=== PATIENT | female | born 1945 | race Asian ===

== ENCOUNTER 2016-08-08 16:57 | Inpatient (IN) | payer OTHER ==
[~2016-08-08] VITALS: Ht 152.4 cm; Wt 50.3 kg
[~2016-08-08 16:57] MED LIST: DAILY VITE1 EACH ORAL; DONEPEZIL HCL10 M2 ORAL; LEVETIRACETAM500 MG ORAL; NAMENDA10 MG ORAL; OMEGA 3 1,0001 EACH PO; QUETIAPINE FUMA50 MG ORAL; RIVASTIGMINE3 MG PO
[2016-08-08 17:00] VITALS: BP 144/63
[2016-08-08 17:57] LABS: BASOPHILS % (AUTO) 0.5 % (0.0-2.0); EOSINOPHILS % (AUTO) 0.1 % (0.0-3.0); LYMPHOCYTES % (AUTO) 16.5 % (20.0-45.0); MEAN CORPUSCULAR HEMOGLOBIN 33.7 PG (27.0-31.0); MEAN CORPUSCULAR HGB CONC 33.1 G/DL (32.0-36.0); MEAN CORPUSCULAR VOLUME 102 FL (80-99); MEAN PLATELET VOLUME 7.2 FL (6.5-10.1); MONOCYTES % (AUTO) 2.4 % (1.0-10.0); NEUTROPHILS % (AUTO) 80.6 % (45.0-75.0); PLATELET COUNT 178 K/UL (150-450); RED BLOOD COUNT 3.86 M/UL (4.20-5.40); RED CELL DISTRIBUTION WIDTH 11.7 % (11.6-14.8); WHITE BLOOD COUNT 8.8 K/UL (4.8-10.8)
--- NOTE | 2016-08-08 18:11 | Emergency Room Report ---
History of Present Illness General Chief Complaint: Altered Level of Consciousness Source: Medical Record Present Illness HPI 70 YO F BIBEMS for ?AMS. Patient is reportedly from SNF. Had episode of nausea/ vomiting then "became altered." Per EMR from previous visit, patient is A&OX1 at baseline. History of Dementia, GERD. No other history from patient, EMS or SNF. Allergies: Coded Allergies: No Known Allergies (Unverified , 05/08/16) Patient History Past Medical History: other - GERD, alzheimers Past Surgical History: unable to obtain Pertinent Family History: unable to obtain Social History: Denies: alcohol use, drug use, smoking Now: No Immunizations: UTD Reviewed Nursing Documentation: PMH: Agreed, PSxH: Agreed Nursing Documentation-PMH Hx Cardiac Problems: No Hx Cancer: No Hx Dementia: Yes Hx Seizures: Yes Review of Systems All Other Systems: limited - AMS Physical Exam Vital Signs Date Time Temp Pulse Resp B/P Pulse Ox O2 Delivery O2 Flow Rate FiO2 08/08/16 16:53 94.6 82 20 137/82 97 Room Air Sp02 EP Interpretation: reviewed, normal General Appearance: normal inspection, well appearing, no apparent distress, alert Head: normocephalic, atraumatic Eyes: bilateral eye EOMI, bilateral eye PERRL Medical Decision Making Medicare Attestation I Tamika Squires MD hereby attest that the medical record entry for date of service, 07/14/16 accurately reflects signatures/notations that I made in my capacity as MD when I treated/diagnosed the above listed Medicare beneficiary. I attest that this information is true, accurate and complete to the best of my knowledge. I understand that any falsification, omission, or concealment of material fact may subject me to administrative, civil, or criminal liability. This patient warrants hospital admission for extreme of age and has a condition that cannot be treated as outpatient. Diagnostic Impression: Primary Impression: Altered level of consciousness Additional Impressions: Enteritis Dilated bowel ER Course 70 YO F with intractable nausea/vomiting. Abd non-focal. VSS. Afebrile. DDx includes gastritis, colitis, entertis SBO unlikely given diarrhea PLAN Labs, IVF, anti-emetic, CTAP given patient has alzheimers, not providing accurate HPI EKG Diagnostic Results Rate: normal Rhythm: NSR ST Segments: no acute changes ASA given to the pt in ED: No Rhythm Strip Diag. Results EP Interpretation: yes Rate: 74 Rhythm: NSR, no PVC's, no ectopy Chest X-Ray Diagnostic Results EP Interpretation: Yes Findings: no consolidation, no effusion, no pneumothorax, no acute cardiopulmonary disease Number of Views: 1 Reevaluation Time: 20:09 Last Vital Signs Date Time Temp Pulse Resp B/P Pulse Ox O2 Delivery O2 Flow Rate FiO2 08/08/16 17:00 94.6 77 29 144/63 98 Room Air Status: improved Reevaluation Impression Labs: Normal H&H. No leuks. Lipase normal CTAP: multiple loops of dilated SB, enteritis. No SBO. A: Patient with diarrhea, unlikely SBO at this time. Was given zofran/reglan/ativan for intractable vomiting Patient alert and oriented X1 at baseline, demented Trying to get out bed repeatedly Endorsed to Dr Marcus for admission at 810pm Needs serial abd exams, re-eval for dilated loops of SB Disposition: ADMITTED INPATIENT Condition: Serious Referrals: NON PHYSICIAN (PCP) TAMIKA SQUIRES M.D. Aug 08, 2016 18:11
[2016-08-08 18:13] LABS: TROPONIN I < 0.30 ng/mL (<=0.30)
[2016-08-08 18:15] LABS: ALANINE AMINOTRANSFERASE 34 U/L (3-33); ALBUMIN/GLOBULIN RATIO 1.4 (1.0-2.7); ANION GAP 17 (5-15); ASPARTATE AMINO TRANSFERASE 50 U/L (5-40); CALCIUM 8.8 mg/dL (8.6-10.2); CARBON DIOXIDE 22 mEQ/L (20-30); CHLORIDE 101 mEQ/L (98-107); CREATININE 0.9 mg/dL (0.5-0.9); HEMOLYSIS 117; POTASSIUM 4.4 mEQ/L (3.4-4.9); SODIUM 140 mEQ/L (135-145); TOTAL PROTEIN 6.9 g/dL (6.6-8.7)
[2016-08-08 18:25] LABS: CKMB 2.3 ng/mL (< 3.8)
[2016-08-08] MEDS ORDERED: Metoclopramide 10mg/2ml Inj IVP ONE (18:30)
[2016-08-08 18:43] VITALS: BP 136/61
[2016-08-08] MEDS ORDERED: LORazepam Inj 2mg/ml 1ml IV ONE (18:45)
[2016-08-08 20:14] VITALS: BP 104/55
[2016-08-08 22:25] VITALS: BP 105/55
[2016-08-09 00:05] VITALS: BP 99/64
[2016-08-09] MEDS ORDERED: Miralax 17gm pkt ORAL PRN ×2 (00:45→22:00)
[2016-08-09] MEDS ORDERED: Morphine Sulfate 2mg/ml Inj IVP PRN (00:45)
[2016-08-09] MEDS ORDERED: Mylanta II UD 30ml ORAL PRN ×2 (00:45→22:00)
[2016-08-09] MEDS ORDERED: Nitroglycerin Subl 0.4mg tab (Bottle Of 25) SL PRN ×2 (00:45→21:45)
[2016-08-09] MEDS ORDERED: QUETIAPINE FUMA25 MG ORAL (00:50)
[2016-08-09] MEDS ORDERED: KEPPRA500 M4 ORAL (00:50)
[2016-08-09] MEDS ORDERED: DEPAKOTE ER250 MG ORAL (00:50)
[2016-08-09] MEDS: D5 1/2NS 1,000 ML IV SCH ×4 (01:18→22:00)
[2016-08-09] MEDS ORDERED: Zosyn 3.375gm inj ONE (02:06)
[2016-08-09 04:02] VITALS: BP 117/59
[2016-08-09] MEDS: LORazepam Inj 2mg/ml 1ml IV PRN ×3 (07:46→17:55)
[2016-08-09] MEDS: Memantine 10mg tab ORAL SCH ×2 (08:00→17:59)
[2016-08-09] MEDS: Heparin 5000 units/ml inj SUBQ SCH ×2 (08:02→20:39)
[2016-08-09] MEDS ORDERED: Donepezil 10mg tab ORAL SCH (09:00)
--- NOTE | 2016-08-09 10:11 | Diagnostic Imaging Report ---
Indication: PAIN Technique: One view of the chest Comparison: 05/08/2016 Findings: Lungs and pleural spaces are clear. Heart size is normal. No significant change Impression: No acute process This agrees with the preliminary interpretation provided by the emergency room physician
[2016-08-09 11:12] VITALS: BP 108/62
--- NOTE | 2016-08-09 12:16 | History and Physical ---
History of Present Illness General Date patient seen: Aug 09, 2016 Reason for Hospitalization: Altered Level of Consciousness Present Illness HPI 70 year old female with hx of psychiatric disorder [facility] ELIAS because of episode of nausea/vomiting then "became altered." Patient has severe dementia and cant talk usually. Patient is admitted to [facility] because of sepsis. Allergies: Coded Allergies: No Known Allergies (Unverified , 05/08/16) Medication History Scheduled Divalproex Sodium* (Depakote Er*), 125 MG ORAL BID, (Reported) Donepezil Hcl* (Donepezil Hcl*), 10 MG ORAL DAILY, (Reported) Levetiracetam (Keppra), 250 MG ORAL BID, (Reported) Levetiracetam* (Levetiracetam*), 250 MG ORAL DAILY, (Reported) Memantine Hcl* (Namenda*), 28 MG ORAL DAILY, (Reported) Multivitamin (Daily Kenyatta), 1 TAB ORAL DAILY, (Reported) Quetiapine Fumarate* (Quetiapine Fumarate*), 25 MG ORAL DAILY, (Reported) Quetiapine Fumarate* (Seroquel*), 25 MG ORAL BID, (Reported) Discontinued Medications Rivastigmine Tartrate (Rivastigmine), 3 MG PO, (Reported) Discontinued Reason: Pt stopped taking med Patient History Healthcare decision maker Resuscitation status Full Code Advanced Directive on File Past Medical/Surgical History Past Medical/Surgical History: (1) Alzheimer's dementia (2) Anxiety (3) Hypertension Review of Systems All Other Systems: negative except mentioned in HPI Physical Exam Lines, tubes and drains: peripheral, central line HEENT: normocephalic, atraumatic Neck: non-tender, normal alignment Respiratory/Chest: chest wall non-tender, lungs clear Cardiovascular/Chest: normal peripheral pulses, normal rate Last 24 Hour Vital Signs Date Time Temp Pulse Resp B/P Pulse Ox O2 Delivery O2 Flow Rate FiO2 08/09/16 11:12 97.3 77 18 108/62 99 Room Air 08/09/16 08:00 73 08/09/16 04:02 97.6 73 18 117/59 98 Room Air 08/09/16 04:00 54 08/09/16 00:05 97.8 75 17 99/64 93 Room Air 08/09/16 00:00 63 08/08/16 22:27 97.2 70 21 104/55 100 Room Air 08/08/16 22:25 97.2 72 21 105/55 100 Room Air 08/08/16 20:14 97.2 70 21 104/55 100 Room Air 08/08/16 18:43 96.4 61 29 136/61 100 Room Air 08/08/16 17:00 94.6 77 29 144/63 98 Room Air 08/08/16 16:53 94.6 82 20 137/82 97 Room Air Intake and Output 08/08/16 08/09/16 19:00 07:00 Intake Total 377.50 ml Balance 377.50 ml Intake IV Total 377.50 ml # Voids 2 # Bowel Movements 1 Laboratory Tests Test 08/08/16 17:40 White Blood Count 8.8 K/UL (4.8-10.8) Red Blood Count 3.86 M/UL (4.20-5.40) L Hemoglobin 13.0 G/DL (12.0-16.0) Hematocrit 39.2 % (37.0-47.0) Mean Corpuscular Volume 102 FL (80-99) H Mean Corpuscular Hemoglobin 33.7 PG (27.0-31.0) H Mean Corpuscular Hemoglobin Concent 33.1 G/DL (32.0-36.0) Red Cell Distribution Width 11.7 % (11.6-14.8) Platelet Count 178 K/UL (150-450) Mean Platelet Volume 7.2 FL (6.5-10.1) Neutrophils (%) (Auto) 80.6 % (45.0-75.0) H Lymphocytes (%) (Auto) 16.5 % (20.0-45.0) L Monocytes (%) (Auto) 2.4 % (1.0-10.0) Eosinophils (%) (Auto) 0.1 % (0.0-3.0) Basophils (%) (Auto) 0.5 % (0.0-2.0) Sodium Level 140 mEQ/L (135-145) Potassium Level 4.4 mEQ/L (3.4-4.9) Chloride Level 101 mEQ/L (98-107) Carbon Dioxide Level 22 mEQ/L (20-30) Anion Gap 17 (5-15) H Blood Urea Nitrogen 10 mg/dL (7-23) Creatinine 0.9 mg/dL (0.5-0.9) Estimat Glomerular Filtration Rate mL/min (>60) Glucose Level 147 mg/dL (74-106) H Calcium Level 8.8 mg/dL (8.6-10.2) Total Bilirubin 0.4 mg/dL (0.0-1.2) Aspartate Amino Transf (AST/SGOT) 50 U/L (5-40) H Alanine Aminotransferase (ALT/SGPT) 34 U/L (3-33) H Alkaline Phosphatase 45 U/L (35-104) Total Creatine Kinase 496 U/L (26-140) H Creatine Kinase MB 2.3 ng/mL (< 3.8) Creatine Kinase MB Relative Index 0.4 Troponin I < 0.30 ng/mL (<=0.30) Total Protein 6.9 g/dL (6.6-8.7) Albumin 4.1 g/dL (3.5-5.2) Globulin 2.8 g/dL Albumin/Globulin Ratio 1.4 (1.0-2.7) Lipase 52 U/L (< 60) Height (Feet): 5 Height (Inches): 0.00 Weight (Pounds): 111 Medications Current Medications Medications (Trade) Dose Ordered Sig/Daniella Route PRN Reason Start Time Stop Time Status Last Admin Dose Admin Acetaminophen (Tylenol) 650 mg Q4H PRN ORAL fever 08/09/16 00:45 09/08/16 00:44 Al Hydroxide/Mg Hydroxide (Mylanta II) 30 ml Q6H PRN ORAL dyspepsia 08/09/16 00:45 09/08/16 00:44 Dextrose STAT PRN IV Hypoglycemia 08/09/16 00:45 09/08/16 00:44 Dextrose/Sodium Chloride (D5 0.45% NS) 1,000 ml @ 75 mls/hr [id number] IV 08/09/16 01:00 09/08/16 00:59 08/09/16 01:18 Diphenhydramine HCl (Benadryl) 25 mg Q6H PRN ORAL Itching/Pruritis 08/09/16 00:45 09/08/16 00:44 Donepezil HCl (Aricept) 10 mg DAILY ORAL 08/09/16 09:00 09/08/16 08:59 08/09/16 08:00 Heparin Sodium (Porcine) (Heparin 5000 units/ml) 5,000 units EVERY 12 HOURS SUBQ 08/09/16 09:00 09/08/16 08:59 Levetiracetam (Keppra) 250 mg DAILY ORAL 08/09/16 09:00 09/08/16 08:59 08/09/16 08:00 Lorazepam (Ativan 2mg/ml 1ml) 1 mg Q2H PRN IV Agitation 08/09/16 07:45 08/16/16 07:44 08/09/16 07:46 Memantine (Namenda) 10 mg BID ORAL 08/09/16 09:00 09/08/16 08:59 08/09/16 08:00 Morphine Sulfate (Morphine Sulfate) 2 mg Q4H PRN IVP severe Pain (Pain Scale 7-10) 08/09/16 00:45 08/16/16 00:44 Nitroglycerin (Ntg) 0.4 mg Q5M X 3 DOSES PRN SL Prn Chest Pain 08/09/16 00:45 09/08/16 00:44 Ondansetron HCl (Zofran) 4 mg Q6H PRN IVP Nausea & Vomiting 08/09/16 00:45 09/08/16 00:44 Piperacillin Sod/ Tazobactam Sod/ Sodium Chloride (Zosyn/Sodium Chloride 100ml bag) 100 ml @ 25 mls/hr Q8H IVPB 08/09/16 02:00 08/16/16 01:59 08/09/16 09:12 Polyethylene Glycol (Miralax) 17 gm HSPRN PRN ORAL Constipation 08/09/16 00:45 09/08/16 00:44 Quetiapine Fumarate 25 mg 25 mg DAILY ORAL 08/09/16 09:00 09/08/16 08:59 08/09/16 08:00 Temazepam (Restoril) 15 mg HSPRN PRN ORAL Insomnia 08/09/16 00:45 08/16/16 00:44 Assessment/Plan Problem List: (1) Sepsis ICD Codes: A41.9 - Sepsis, unspecified organism SNOMED: 57944476 (2) UTI (urinary tract infection) ICD Codes: N39.0 - Urinary tract infection, site not specified SNOMED: 90475160 (3) Alzheimer's dementia ICD Codes: G30.9 - Alzheimer's disease, unspecified SNOMED: 82330662 (4) Hypertension ICD Codes: I10 - Essential (primary) hypertension SNOMED: 83357269 Assessment/Plan IV fluids IV antibiotics check urine and blood cultures psych evaluation dvt prophylaxis MEG SAMUELS Aug 09, 2016 12:16
--- NOTE | 2016-08-09 13:34 | Infectious Diseases Prog Note ---
Assessment/Plan Problems: (1) Enteritis Assessment & Plan: will send stool for culture and C diff , continue zosyn empirically, consult GI (2) Sepsis Assessment & Plan: will send blood culture, continue zosyn , monitor culture results (3) Alzheimer's dementia Assessment & Plan: continue supportive care and meds (4) Hypertension Assessment & Plan: continue meds to keep SBP< 140 (5) Altered level of consciousness Assessment & Plan: suspect due to sepsis, continue antibiotics, consult neurology Subjective Allergies: Coded Allergies: No Known Allergies (Unverified , 05/08/16) Objective Vital Signs Last 24 Hour Vital Signs Date Time Temp Pulse Resp B/P Pulse Ox O2 Delivery O2 Flow Rate FiO2 08/09/16 12:00 68 08/09/16 11:12 97.3 77 18 108/62 99 Room Air 08/09/16 08:00 73 08/09/16 04:02 97.6 73 18 117/59 98 Room Air 08/09/16 04:00 54 08/09/16 00:05 97.8 75 17 99/64 93 Room Air 08/09/16 00:00 63 08/08/16 22:27 97.2 70 21 104/55 100 Room Air 08/08/16 22:25 97.2 72 21 105/55 100 Room Air 08/08/16 20:14 97.2 70 21 104/55 100 Room Air 08/08/16 18:43 96.4 61 29 136/61 100 Room Air 08/08/16 17:00 94.6 77 29 144/63 98 Room Air 08/08/16 16:53 94.6 82 20 137/82 97 Room Air Height (Feet): 5 Height (Inches): 0.00 Weight (Pounds): 111 Laboratory Tests Test 08/08/16 17:40 White Blood Count 8.8 K/UL (4.8-10.8) Red Blood Count 3.86 M/UL (4.20-5.40) L Hemoglobin 13.0 G/DL (12.0-16.0) Hematocrit 39.2 % (37.0-47.0) Mean Corpuscular Volume 102 FL (80-99) H Mean Corpuscular Hemoglobin 33.7 PG (27.0-31.0) H Mean Corpuscular Hemoglobin Concent 33.1 G/DL (32.0-36.0) Red Cell Distribution Width 11.7 % (11.6-14.8) Platelet Count 178 K/UL (150-450) Mean Platelet Volume 7.2 FL (6.5-10.1) Neutrophils (%) (Auto) 80.6 % (45.0-75.0) H Lymphocytes (%) (Auto) 16.5 % (20.0-45.0) L Monocytes (%) (Auto) 2.4 % (1.0-10.0) Eosinophils (%) (Auto) 0.1 % (0.0-3.0) Basophils (%) (Auto) 0.5 % (0.0-2.0) Sodium Level 140 mEQ/L (135-145) Potassium Level 4.4 mEQ/L (3.4-4.9) Chloride Level 101 mEQ/L (98-107) Carbon Dioxide Level 22 mEQ/L (20-30) Anion Gap 17 (5-15) H Blood Urea Nitrogen 10 mg/dL (7-23) Creatinine 0.9 mg/dL (0.5-0.9) Estimat Glomerular Filtration Rate mL/min (>60) Glucose Level 147 mg/dL (74-106) H Calcium Level 8.8 mg/dL (8.6-10.2) Total Bilirubin 0.4 mg/dL (0.0-1.2) Aspartate Amino Transf (AST/SGOT) 50 U/L (5-40) H Alanine Aminotransferase (ALT/SGPT) 34 U/L (3-33) H Alkaline Phosphatase 45 U/L (35-104) Total Creatine Kinase 496 U/L (26-140) H Creatine Kinase MB 2.3 ng/mL (< 3.8) Creatine Kinase MB Relative Index 0.4 Troponin I < 0.30 ng/mL (<=0.30) Total Protein 6.9 g/dL (6.6-8.7) Albumin 4.1 g/dL (3.5-5.2) Globulin 2.8 g/dL Albumin/Globulin Ratio 1.4 (1.0-2.7) Lipase 52 U/L (< 60) Current Medications Medications (Trade) Dose Ordered Sig/Daniella Route PRN Reason Start Time Stop Time Status Last Admin Dose Admin Acetaminophen (Tylenol) 650 mg Q4H PRN ORAL fever 08/09/16 00:45 09/08/16 00:44 Al Hydroxide/Mg Hydroxide (Mylanta II) 30 ml Q6H PRN ORAL dyspepsia 08/09/16 00:45 09/08/16 00:44 Dextrose STAT PRN IV Hypoglycemia 08/09/16 00:45 09/08/16 00:44 Dextrose/Sodium Chloride (D5 0.45% NS) 1,000 ml @ 75 mls/hr [id number] IV 08/09/16 01:00 09/08/16 00:59 08/09/16 01:18 Diphenhydramine HCl (Benadryl) 25 mg Q6H PRN ORAL Itching/Pruritis 08/09/16 00:45 09/08/16 00:44 Donepezil HCl (Aricept) 10 mg DAILY ORAL 08/09/16 09:00 09/08/16 08:59 08/09/16 08:00 Heparin Sodium (Porcine) (Heparin 5000 units/ml) 5,000 units EVERY 12 HOURS SUBQ 08/09/16 09:00 09/08/16 08:59 Levetiracetam (Keppra) 250 mg DAILY ORAL 08/09/16 09:00 09/08/16 08:59 08/09/16 08:00 Lorazepam (Ativan 2mg/ml 1ml) 1 mg Q2H PRN IV Agitation 08/09/16 07:45 08/16/16 07:44 08/09/16 13:26 Memantine (Namenda) 10 mg BID ORAL 08/09/16 09:00 09/08/16 08:59 08/09/16 08:00 Morphine Sulfate (Morphine Sulfate) 2 mg Q4H PRN IVP severe Pain (Pain Scale 7-10) 08/09/16 00:45 08/16/16 00:44 Nitroglycerin (Ntg) 0.4 mg Q5M X 3 DOSES PRN SL Prn Chest Pain 08/09/16 00:45 09/08/16 00:44 Ondansetron HCl (Zofran) 4 mg Q6H PRN IVP Nausea & Vomiting 08/09/16 00:45 09/08/16 00:44 Piperacillin Sod/ Tazobactam Sod/ Sodium Chloride (Zosyn/Sodium Chloride 100ml bag) 100 ml @ 25 mls/hr Q8H IVPB 08/09/16 02:00 08/16/16 01:59 08/09/16 09:12 Polyethylene Glycol (Miralax) 17 gm HSPRN PRN ORAL Constipation 08/09/16 00:45 09/08/16 00:44 Quetiapine Fumarate 25 mg 25 mg DAILY ORAL 08/09/16 09:00 09/08/16 08:59 08/09/16 08:00 Temazepam (Restoril) 15 mg HSPRN PRN ORAL Insomnia 08/09/16 00:45 08/16/16 00:44 Kasandra Strong M.D. Aug 09, 2016 13:34
--- NOTE | 2016-08-09 14:21 | Consultation ---
Consult Note Consult Note NEUROLOGY CONSULTATION: Full note dictated #[id number] 70 y/o, RH, KF who does have a PH of a psychiatric illness and dementia. She was hospitalized for an altered mental state and possible sepsis. Her exact baseline function is unknown. ON EXAM: Somnolent but can be aroused. Unable to communicate even in Vietnamese. No definite focal dysfunction. IMPRESSION: Toxic encephalopathy superimposed on underlying dementia. REC: Observe on present Rx. If not significantly better by tomorrow - consider CT of brain. Andi Almanzar M.D., M.S.P.H. ANDI ALMANZAR Aug 09, 2016 14:21
--- NOTE | 2016-08-09 15:00 | General Progress Note ---
Assessment/Plan Assessment/Plan Assessment - N/V - abnormal LFT - HTN - OBS - Anxiety Recommendations - Clear liq trial - follow LFT - Await formal CT reading - check hepatitis serologies Subjective Allergies: Coded Allergies: No Known Allergies (Unverified , 05/08/16) Objective Last 24 Hour Vital Signs Date Time Temp Pulse Resp B/P Pulse Ox O2 Delivery O2 Flow Rate FiO2 08/09/16 12:00 68 08/09/16 11:12 97.3 77 18 108/62 99 Room Air 08/09/16 08:00 73 08/09/16 04:02 97.6 73 18 117/59 98 Room Air 08/09/16 04:00 54 08/09/16 00:05 97.8 75 17 99/64 93 Room Air 08/09/16 00:00 63 08/08/16 22:27 97.2 70 21 104/55 100 Room Air 08/08/16 22:25 97.2 72 21 105/55 100 Room Air 08/08/16 20:14 97.2 70 21 104/55 100 Room Air 08/08/16 18:43 96.4 61 29 136/61 100 Room Air 08/08/16 17:00 94.6 77 29 144/63 98 Room Air 08/08/16 16:53 94.6 82 20 137/82 97 Room Air Intake and Output 08/08/16 08/09/16 19:00 07:00 Intake Total 377.50 ml Balance 377.50 ml Intake IV Total 377.50 ml # Voids 2 # Bowel Movements 1 Laboratory Tests 08/08/16 17:40: White Blood Count 8.8, Red Blood Count 3.86L, Hemoglobin 13.0, Hematocrit 39.2, Mean Corpuscular Volume 102H, Mean Corpuscular Hemoglobin 33.7H, Mean Corpuscular Hemoglobin Concent 33.1, Red Cell Distribution Width 11.7, Platelet Count 178, Mean Platelet Volume 7.2, Neutrophils (%) (Auto) 80.6H, Lymphocytes ( %) (Auto) 16.5L, Monocytes (%) (Auto) 2.4, Eosinophils (%) (Auto) 0.1, Basophils (%) (Auto) 0.5, Sodium Level 140, Potassium Level 4.4, Chloride Level 101, Carbon Dioxide Level 22, Anion Gap 17H, Blood Urea Nitrogen 10, Creatinine 0.9, Estimat Glomerular Filtration Rate , Glucose Level 147H, Calcium Level 8.8 , Total Bilirubin 0.4, Aspartate Amino Transf (AST/SGOT) 50H, Alanine Aminotransferase (ALT/SGPT) 34H, Alkaline Phosphatase 45, Total Creatine Kinase 496H, Creatine Kinase MB 2.3, Creatine Kinase MB Relative Index 0.4, Troponin I < 0.30, Total Protein 6.9, Albumin 4.1, Globulin 2.8, Albumin/Globulin Ratio 1.4 , Lipase 52 08/09/16 14:45: Erythrocyte Sedimentation Rate [Pending], Hemoglobin A1c [Pending], Vitamin B12 Level [Pending], Vitamin D 25-Hydroxy [Pending], 25-Hydroxy Vitamin D2 [Pending] , 25-Hydroxy Vitamin D3 [Pending], Folate [Pending], Thyroid Stimulating Hormone (TSH) [Pending], Rapid Plasma Reagin [Pending] Height (Feet): 5 Height (Inches): 0.00 Weight (Pounds): 111 JUAN CARLOS WEIR Aug 09, 2016 14:59
[2016-08-09 15:24] LABS: HEMOGLOBIN A1C 5.2 % (< 6.0)
[2016-08-09 16:00] VITALS: BP 111/66
[2016-08-09] MEDS ORDERED: Tubing IV Secondary IV ONE (16:23)
[2016-08-09] MEDS ORDERED: NS 275ml ONE (16:23)
[2016-08-09] MEDS ORDERED: D5 1/2NS 1000ml IV ONE (16:23)
[2016-08-09 20:00] VITALS: BP 112/65
--- NOTE | 2016-08-09 21:57 | Consultation ---
DATE OF CONSULTATION: 08/09/2016 NEUROLOGY CONSULTATION CONSULTING PHYSICIAN: Nick Almanzar M.D. REQUESTING PHYSICIAN: Anna Bean M.D. HISTORY: Ms. Cherelle Olmstead is a 70-year-old, right-handed, Romanian lady, who does have a past history of a psychiatric illness and dementia. She apparently lives in a mcc. She was brought into the [facility] emergency room for nausea, vomiting, and an altered mental state. On being evaluated in the emergency room, was thought to be possibly septic. As a result of that, she was hospitalized and started on intravenous fluids and antibiotics. She, however, continues to be significantly altered with regards to her mental state. Her exact baseline neurological function is unknown to us and thus it is impossible to know how altered she is. PAST MEDICAL HISTORY: Significant for psychiatric illness and dementia. FAMILY HISTORY: Nothing significant. PERSONAL HISTORY: Home: She lives in the mcc. Work: Unknown. Habits: Unknown. MEDICATIONS: Present medications include Aricept 10 mg daily, Keppra 250 mg daily, Namenda 10 mg twice a day, Seroquel 25 mg daily, heparin for DVT prophylaxis, Ativan p.r.n., Zosyn, Tylenol p.r.n., morphine p.r.n., MiraLAX p.r.n., Zofran p.r.n., Restoril p.r.n., Benadryl p.r.n., and Mylanta p.r.n. PHYSICAL EXAMINATION: GENERAL: She is a well-developed, well-nourished, Romanian lady, lying in bed, and in no acute distress. VITAL SIGNS: Pulse 76 per minute, blood pressure 108/60 mmHg, respirations 18 per minute, and temperature 97.3 degrees Fahrenheit. HEAD: Normocephalic and atraumatic. EENT: Examination benign. NECK: No neck rigidity was observed. NEUROLOGIC EXAMINATION: MENTAL STATUS EXAMINATION: She was drowsy, but arousable. She would wake up for a few minutes and then go back to sleep. She was unable to cooperate for further mental status testing, even though the questions were asked in Romanian by family members.. SPEECH: She said a few words and was not dysarthric. LANGUAGE: Could not be tested. CRANIAL NERVE EXAMINATION: II: She did blink to threat. III, IV & : The external ocular movements were present on oculocephalic maneuvers. The pupils were 3 mm in diameter, equal, round, regular, reactive sluggishly to light. V & VII: The corneal reflexes were equally brisk. VIII: She did respond to sounds and had no nystagmus. IX & X: The gag reflex was present, but diminished. XI: The sternocleidomastoids and trapezii did function. XII: The tongue was in midline. MOTOR SYSTEM: The tone was normal in all four extremities. Examination of muscle mass revealed no focal wasting. Examination of power was impossible to perform on an individual muscle groups, however when deep painful stimuli were applied, she moved all four extremities minimally. SENSORY EXAMINATION: She responded appropriately to deep pain. She was unable to cooperate for other sensory modalities. REFLEXES: 1+ and bilaterally symmetrical at the biceps, triceps, brachioradialis, and knees and 0 at both ankles. The plantar responses were flexor bilaterally. COORDINATION, STANCE & GAIT: Could not be tested. DIAGNOSTIC IMPRESSION: 1. Ms. Cherelle Olmstead is a 70-year-old, right-handed, Romanian lady, who does have a past history of psychiatric illness and dementia, who was hospitalized for an altered mental state related to possible sepsis. Since she has been here, she continues to be poorly responsive. 2. On neurological examination, at this time, she can be aroused, but is quite somnolent. She does not follow commands even in Romanian. She, however, does not demonstrate any focal or lateralizing findings. 3. Laboratory data thus far have revealed that her hemoglobin is 12.0 and her WBC count is 8.8. Her chemistry panel is relatively benign except for an anion gap of 17. Her glucose is elevated to 147. Her AST and ALT are also elevated. Her CK was also elevated to 496. 4. The patient's history and neurological examination are most compatible with an acute toxic encephalopathy, possibly related to her acute infectious process, superimposed on her underlying dementia. RECOMMENDATIONS: 1. Agree with management thus far. 2. Continue to correct the patient's fluid and electrolyte imbalance. 3. Continue to treat the patient's acute infectious process. 4. The patient should be worked up for other treatable causes of altered mental state. 5. If no significant change in her neurological status noted by tomorrow, then it may be worth getting an imaging study of the brain like a CT scan of the brain. Thank you for entrusting me with the care of Ms. Olmstead. I shall follow her with you. Nick Almanzar M.D., M.S.P.H. DR: DAVID JOB#: [id number] MTDD
--- NOTE | 2016-08-09 22:57 | Consultation ---
DATE OF CONSULTATION: INFECTIOUS DISEASE CONSULTATION: REASON FOR THE CONSULTATION: Enteritis, sepsis, and recommendation for antibiotics therapy. REQUESTING PHYSICIAN: Anna Bean M.D. HISTORY OF PRESENT ILLNESS: The patient is a 70-year-old female with dementia was brought in to [facility] emergency room for altered mental status from [facility]. The patient had episode of nausea and vomiting and she became altered. No further details available. The patient is demented cannot provide any history. History was mainly obtained from the medical record. Her temperature was 94.6 degrees and saturating 97% on room air. In the emergency room, chest x-ray showed no evidence of pneumonia or consolidation. CT scan of the abdomen and pelvis showed evidence of enteritis. The patient was started on Zosyn and I was consulted by the primary provider for antibiotics recommendation. PAST MEDICAL HISTORY: Significant for GERD and Alzheimer. PAST SURGICAL HISTORY: Unable to obtain. MEDICATIONS: She is on Aricept, Keppra, Namenda, Seroquel, heparin, Ativan, Zosyn, Tylenol, morphine, MiraLAX, Restoril, Benadryl, Mylanta, and nitroglycerin. ALLERGIES: She has no known drug allergy. SOCIAL HISTORY: She lives in the [facility] facility. No recent drugs, tobacco, or alcohol. FAMILY HISTORY: Unable to obtain. REVIEW OF SYSTEMS: Unable to obtain. The patient is poor historian. PHYSICAL EXAMINATION: VITAL SIGNS: Temperature of. 97.3 degrees, pulse 77, respirations 18, blood pressure of 108/62, and pulse oximetry 99% on room air. GENERAL: This is an elderly female, lying in bed, demented, not agitated, not in acute distress. HEENT: Normocephalic and atraumatic. Pupils reactive to light. Dry oral mucosa. No exudate. NECK: Supple. No lymphadenopathy. CARDIOVASCULAR: Regular rate and rhythm. No murmur. LUNGS: Diminished breathing sound on the bases. Normal breathing efforts. ABDOMEN: Soft, mildly distended, No rebound. No organomegaly. EXTREMITIES: No edema. No cyanosis. SKIN: She had left knee skin wound with no surrounding skin erythema or redness. LABORATORY AND DIAGNOSTIC DATA: Lab today showed white count of 8.8, hemoglobin 13, hematocrit 39.2, and platelet count 178,000. BUN 10 and creatinine 0.9. AST of 50 and ALT 34. CK 496. Imaging, chest x-ray showed no acute process. CT abdomen showed enteritis. ASSESSMENT AND PLAN: 1. Enteritis rule out infectious etiology. Need to send stool for culture and Clostridium difficile. Continue Zosyn empirically. Consult Gastroenterology. 2. Sepsis. We will send blood culture. Continue Zosyn. Monitor culture results. 3. Altered mental status suspect due to sepsis. Continue wide-spectrum antibiotics. Consult Neurology. 4. Hypertension. Continue blood pressure medications. 5. Alzheimer dementia. Continue supportive care and medications. Kasandra Strong M.D. DR: Chance JOB#: [id number] CC: GERALD
[2016-08-10 00:33] VITALS: BP 99/56
[2016-08-10] MEDS: LORazepam Inj 2mg/ml 1ml IV PRN ×2 (01:32→14:10)
[2016-08-10 04:00] VITALS: BP 127/81
--- NOTE | 2016-08-10 04:18 | History and Physical Report ---
DATE OF ADMISSION: 08/08/2016 HISTORY OF PRESENT ILLNESS: The patient is admitted for altered mental status as well as nausea and vomiting. CT, according to the ER doctor, showed multiple loops of air, thickening, possible suggestive of enteritis. No sprue per ER doctor. The patient also has a history of dementia, poor historian. Unable to obtain history. This is a patient of Dr. Guillermo Mracus. We are covering him. Cannot obtain due to patient's poor history. PAST MEDICAL HISTORY: Gastric wall thickening, dementia, history of anxiety, hypertension, Alzheimer's, history of , mood disorder and seizure disorder and psychosis. PAST SURGICAL HISTORY: Denies. ALLERGIES: No known allergies. MEDICATIONS: Keppra, donepezil, Depakote, Namenda, and Seroquel. FAMILY HISTORY: Unable to obtain. SOCIAL HISTORY: Unable to obtain. REVIEW OF SYSTEMS: Unable to obtain. PHYSICAL EXAMINATION: VITAL SIGNS: Temperature is 97.6, pulse is 73, and blood pressure 117/59. HEENT: PERRLA. NECK: Supple. No lymphadenopathy. CHEST: Clear to auscultation. GASTROINTESTINAL: Soft, nontender, and nondistended. No organomegaly. EXTREMITIES: No edema. Reflexes are equal on both sides. LABORATORY DATA: WBC 8.8, hemoglobin 13, and platelets 178,000. Sodium 140, potassium 4.4, chloride 101, BUN 10, and creatinine 0.9, and glucose of 147. AST of 50 and ALT of 34. ASSESSMENT AND PLAN: 1. Nausea and vomiting. 2. Enteritis. 3. Altered mental status. I have asked Dr. Lagunas, Dr. Newsome, and Dr. Strong to see the patient for the above-mentioned diagnoses and treatment. Anna Bean M.D. DR: ANDREW JOB#: [id number] CC:
[2016-08-10 06:38] LABS: BASOPHILS % (AUTO) 1.1 % (0.0-2.0); EOSINOPHILS % (AUTO) 0.8 % (0.0-3.0); LYMPHOCYTES % (AUTO) 38.7 % (20.0-45.0); MEAN CORPUSCULAR HEMOGLOBIN 33.8 PG (27.0-31.0); MEAN CORPUSCULAR HGB CONC 33.7 G/DL (32.0-36.0); MEAN CORPUSCULAR VOLUME 100 FL (80-99); MEAN PLATELET VOLUME 7.1 FL (6.5-10.1); MONOCYTES % (AUTO) 5.6 % (1.0-10.0); NEUTROPHILS % (AUTO) 53.7 % (45.0-75.0); PLATELET COUNT 184 K/UL (150-450); RED BLOOD COUNT 3.76 M/UL (4.20-5.40); WHITE BLOOD COUNT 6.5 K/UL (4.8-10.8)
[2016-08-10 06:55] LABS: ALANINE AMINOTRANSFERASE 25 U/L (3-33); ALBUMIN/GLOBULIN RATIO 1.3 (1.0-2.7); AMYLASE 43 U/L (10-110); ANION GAP 10 (5-15); ASPARTATE AMINO TRANSFERASE 34 U/L (5-40); CALCIUM 8.7 mg/dL (8.6-10.2); CARBON DIOXIDE 28 mEQ/L (20-30); CHLORIDE 107 mEQ/L (98-107); CREATININE 0.9 mg/dL (0.5-0.9); HEMOLYSIS 2; LIPASE 61 U/L (< 60); POTASSIUM 3.6 mEQ/L (3.4-4.9); SODIUM 145 mEQ/L (135-145); TOTAL PROTEIN 6.2 g/dL (6.6-8.7)
[2016-08-10 07:09] LABS: MAGNESIUM 2.2 mg/dL (1.7-2.5); PHOSPHORUS 3.4 mg/dL (2.5-4.8)
[2016-08-10 08:00] VITALS: BP 129/65
[2016-08-10] MEDS: Memantine 10mg tab ORAL SCH ×2 (08:30→18:30)
[2016-08-10] MEDS: Heparin 5000 units/ml inj SUBQ SCH ×2 (08:30→20:40)
[2016-08-10] MEDS: Donepezil 10mg tab ORAL SCH (08:30)
--- NOTE | 2016-08-10 08:38 | Consultation ---
DATE OF CONSULTATION: 08/09/2016 GASTROLOGY CONSULTATION CHIEF COMPLAINT: I was asked to see this patient by Dr. Anna Bean for evaluation of vomiting and abnormal liver tests. HISTORY OF PRESENT ILLNESS: The patient is a debilitated 70-year-old woman with advanced dementia with minimal history, who comes in to the hospital due to vomiting. The patient was admitted to medical floor and this consultation was generated. Evaluation of admission labs showed some liver test abnormalities. There is no the prior history of liver disorders history reviewed. She appears to be comfortable and without complaints. PAST MEDICAL HISTORY: She has multiple history of dementia, history of diabetes, and hypertension. FAMILY HISTORY: Unavailable. SOCIAL HISTORY: Unavailable. HABITS: Unavailable. REVIEW OF SYSTEMS: Unobtainable. MEDICATIONS: See chart for details. PHYSICAL EXAMINATION: GENERAL: A debilitated calm woman, who was minimally , but opens her eyes. HEENT: Normocephalic and atraumatic. Sclerae anicteric. Oropharynx clear. NECK: Supple. CHEST: Clear to auscultation. CARDIOVASCULAR: Revealed regular rate. ABDOMEN: Soft, nontender, and nondistended. EXTREMITIES: Revealed no edema. LABORATORY DATA: Noted. ASSESSMENT: This patient presents with nausea and vomiting of unclear etiology. There is a secondhand report of some CT changes consistent with , but the actual official CT reading is not available. The patient also has some abnormal liver tests of unclear etiology. This was workup. RECOMMENDATIONS: 1. Await CT final reading. 2. Check hepatitis serology. 3. Begin oral diet with clear liquids and advance slowly as tolerated. 4. Further recommendations to follow. Thank you for asking me to participate in the care of this patient. Panda Maldonado M.D. DR: DONG JOB#: [id number] CC:
[2016-08-10 12:00] VITALS: BP 110/59
--- NOTE | 2016-08-10 13:20 | Consultation ---
Consult Note Consult Note 70 YO F BIBEMS for ?AMS. Patient is reportedly from SNF. Had episode of nausea/ vomiting then "became altered." Per EMR from previous visit, patient is A&OX1 at baseline. History of Dementia, GERD. No other history from patient, EMS or SNF. Aske dto eval for management of HTN Patient examined- Data reviewed . Assessment/Plan HTN controlled- PH - Abdominal pain with vomiting secondary to acute pancreatitis. - Alzheimer's dementia. - Possible enteritis. Plan: Watch BP on current treatment- Watch electrolytes in view of vomiting continue per GI- check ANDRE BRICEÑO Aug 10, 2016 13:20
--- NOTE | 2016-08-10 13:21 | General Progress Note ---
Assessment/Plan Assessment/Plan Assessment - N/V - abnormal LFT - HTN - OBS - Anxiety Recommendations - advance diet as tolerated - follow LFT - Await formal CT reading - check hepatitis serologies Subjective Allergies: Coded Allergies: No Known Allergies (Unverified , 05/08/16) Subjective agitated at times d/w sitter Objective Last 24 Hour Vital Signs Date Time Temp Pulse Resp B/P Pulse Ox O2 Delivery O2 Flow Rate FiO2 08/10/16 12:00 97.2 74 19 110/59 97 Room Air 08/10/16 08:00 96.6 86 19 129/65 97 Room Air 08/10/16 04:00 98.1 86 19 127/81 97 Room Air 08/10/16 00:33 98.1 74 16 99/56 98 Room Air 08/09/16 20:00 97.1 68 18 112/65 97 Room Air 08/09/16 20:00 71 08/09/16 16:00 97.2 77 18 111/66 98 Room Air 08/09/16 16:00 63 Intake and Output 08/09/16 08/10/16 19:00 07:00 Intake Total 950 ml 525 ml Output Total 0 ml Balance 950 ml 525 ml Intake Oral 200 ml IV Total 950 ml 325 ml Output Urine Total 0 ml # Voids 1 1 Laboratory Tests 08/09/16 14:45: Erythrocyte Sedimentation Rate 41H, Hemoglobin A1c 5.2, Vitamin B12 Level 938, Vitamin D 25-Hydroxy [Pending], 25-Hydroxy Vitamin D2 [Pending], 25-Hydroxy Vitamin D3 [Pending], Folate [Pending], Thyroid Stimulating Hormone (TSH) 2.160 , Rapid Plasma Reagin Non reactive 08/10/16 05:25: White Blood Count 6.5, Red Blood Count 3.76L, Hemoglobin 12.7, Hematocrit 37.7, Mean Corpuscular Volume 100H, Mean Corpuscular Hemoglobin 33.8H, Mean Corpuscular Hemoglobin Concent 33.7, Red Cell Distribution Width 12.0, Platelet Count 184, Mean Platelet Volume 7.1, Neutrophils (%) (Auto) 53.7, Lymphocytes (% ) (Auto) 38.7, Monocytes (%) (Auto) 5.6, Eosinophils (%) (Auto) 0.8, Basophils ( %) (Auto) 1.1, Activated Partial Thromboplast Time 24, Sodium Level 145, Potassium Level 3.6, Chloride Level 107, Carbon Dioxide Level 28, Anion Gap 10, Blood Urea Nitrogen 6L, Creatinine 0.9, Estimat Glomerular Filtration Rate , Glucose Level 89, Calcium Level 8.7, Phosphorus Level 3.4, Magnesium Level 2.2, Total Bilirubin 0.6, Aspartate Amino Transf (AST/SGOT) 34, Alanine Aminotransferase (ALT/SGPT) 25, Alkaline Phosphatase 43, Total Protein 6.2L, Albumin 3.6, Globulin 2.6, Albumin/Globulin Ratio 1.3, Amylase Level 43, Lipase 61H, Hepatitis A IgM Antibody [Pending], Hepatitis B Surface Antigen [Pending], Hepatitis B Core IgM Antibody [Pending], Hepatitis C Antibody [Pending] Height (Feet): 5 Height (Inches): 0.00 Weight (Pounds): 111 Objective Elderly woman NCAT supple CTA RR soft ND NT no edema OBS JUAN CARLOS WEIR Aug 10, 2016 13:21
--- NOTE | 2016-08-10 13:33 | Neurology Progress Note ---
Interim History Interim History Interim History Ms. Olmstead feels better. She is eating well. She is alert and awake today. She however is cognitively impoverished. She is generally stronger and is able to walk now. Review of Systems Neuro Review of Systems Benign. Objective Physical Exam Last Vital Signs Date Time Temp Pulse Resp B/P Pulse Ox O2 Delivery O2 Flow Rate FiO2 08/10/16 12:00 97.2 74 19 110/59 97 Room Air Laboratory Tests Test 08/09/16 14:45 08/10/16 05:25 Erythrocyte Sedimentation Rate 41 MM/HR (0-30) H Hemoglobin A1c 5.2 % (< 6.0) Vitamin B12 Level 938 pg/mL (211-946) Vitamin D 25-Hydroxy Pending 25-Hydroxy Vitamin D2 Pending 25-Hydroxy Vitamin D3 Pending Folate Pending Thyroid Stimulating Hormone (TSH) 2.160 uIU/mL (0.300-4.500) Rapid Plasma Reagin Non reactive (Non Reactive) White Blood Count 6.5 K/UL (4.8-10.8) Red Blood Count 3.76 M/UL (4.20-5.40) L Hemoglobin 12.7 G/DL (12.0-16.0) Hematocrit 37.7 % (37.0-47.0) Mean Corpuscular Volume 100 FL (80-99) H Mean Corpuscular Hemoglobin 33.8 PG (27.0-31.0) H Mean Corpuscular Hemoglobin Concent 33.7 G/DL (32.0-36.0) Red Cell Distribution Width 12.0 % (11.6-14.8) Platelet Count 184 K/UL (150-450) Mean Platelet Volume 7.1 FL (6.5-10.1) Neutrophils (%) (Auto) 53.7 % (45.0-75.0) Lymphocytes (%) (Auto) 38.7 % (20.0-45.0) Monocytes (%) (Auto) 5.6 % (1.0-10.0) Eosinophils (%) (Auto) 0.8 % (0.0-3.0) Basophils (%) (Auto) 1.1 % (0.0-2.0) Activated Partial Thromboplast Time 24 SEC (23-33) Sodium Level 145 mEQ/L (135-145) Potassium Level 3.6 mEQ/L (3.4-4.9) Chloride Level 107 mEQ/L (98-107) Carbon Dioxide Level 28 mEQ/L (20-30) Anion Gap 10 (5-15) Blood Urea Nitrogen 6 mg/dL (7-23) L Creatinine 0.9 mg/dL (0.5-0.9) Estimat Glomerular Filtration Rate mL/min (>60) Glucose Level 89 mg/dL (74-106) Calcium Level 8.7 mg/dL (8.6-10.2) Phosphorus Level 3.4 mg/dL (2.5-4.8) Magnesium Level 2.2 mg/dL (1.7-2.5) Total Bilirubin 0.6 mg/dL (0.0-1.2) Aspartate Amino Transf (AST/SGOT) 34 U/L (5-40) Alanine Aminotransferase (ALT/SGPT) 25 U/L (3-33) Alkaline Phosphatase 43 U/L (35-104) Total Protein 6.2 g/dL (6.6-8.7) L Albumin 3.6 g/dL (3.5-5.2) Globulin 2.6 g/dL Albumin/Globulin Ratio 1.3 (1.0-2.7) Amylase Level 43 U/L (10-110) Lipase 61 U/L (< 60) H Hepatitis A IgM Antibody Pending Hepatitis B Surface Antigen Pending Hepatitis B Core IgM Antibody Pending Hepatitis C Antibody Pending Neurologic Exam Objective PHYSICAL EXAMINATION: GENERAL: She is a well-developed, well-nourished, [place] lady, lying in bed, enjoying her lunch, in no acute distress. HEAD: Normocephalic and atraumatic. EENT: Examination benign. NECK: No neck rigidity was observed. NEUROLOGIC EXAMINATION: MENTAL STATUS EXAMINATION: She was awake and alert. She was oriented to self only. She had no idea of where she was or what the date was. She was unable to cooperate for further mental status tests. SPEECH: She had no dysarthria LANGUAGE: Normal in [place]. CRANIAL NERVE EXAMINATION: II: She counted fingers accurately. III, IV & : The external ocular movements were full The pupils were 3 mm in diameter, equal, round, regular, reactive sluggishly to light. V: The facial sensations were normal and the temporales, masseters and pterygoids functioned well. VII: She had normal facial expressions and no facial asymmetry. VIII: She was able to hear well and had no nystagmus. IX: The palate moved symmetrically on phonation. X: She had no hoarseness of voice. XI: The sternocleidomastoids and trapezii did function. XII: The tongue was in midline. MOTOR SYSTEM: The tone was normal in all four extremities. Examination of muscle mass revealed no focal wasting. Examination of power revealed G 5/5 in all muscle groups. SENSORY EXAMINATION: She had intact sensations to pin prick and light touch. REFLEXES: 1+ and bilaterally symmetrical at the biceps, triceps, brachioradialis , and knees and 0 at both ankles. The plantar responses were flexor bilaterally. COORDINATION: She performed well on [id number] testing. STANCE & GAIT: She stood and walked well with contact guard. Impression/Recommendations Diagnostic Impression 1. Ms. Cherelle Olmstead is a 70-year-old, right-handed, [place] lady, who does have a past history of psychiatric illness and dementia, who was hospitalized for an altered mental state related to possible sepsis. 2. She looks and feels much better today. She is awake and responsive. She is also able to stand and walk. 3. On neurological examination, at this time, she is awake and alert. She however is disoriented to place and time. She also demonstrates significant cognitive dysfunction. She, however, does not demonstrate any focal or lateralizing findings. 4. Laboratory data thus far have revealed that her hemoglobin is 12.0 and her WBC count is 8.8. Her chemistry panel is relatively benign except for an anion gap of 17. Her glucose is elevated to 147. Her AST and ALT are also elevated. Her CK was also elevated to 496. Her B12, Folate and TSH are normal. 5. The patient's history and neurological examination are most compatible with an acute toxic encephalopathy, possibly related to her acute infectious process , superimposed on her underlying dementia. She is significantly improved today. Recommendations 1. Continue present management. 2. Continue to correct the patient's fluid and electrolyte imbalance. 3. Continue to treat the patient's acute infectious process. 4. Increase activity as tolerated. Andi Almanzar M.D., M.SLeonel. ANDI ALMANZAR Aug 10, 2016 13:33
[2016-08-10] MEDS: D5 1/2NS 1,000 ML IV SCH (14:44)
[2016-08-10 15:04] LABS: APPEARANCE,URINE CLEAR; KETONES,URINE NEGATIVE (NEGATIVE); LEUKOCYTE ESTERASE ,URINE NEGATIVE (NEGATIVE); NITRITE,URINE NEGATIVE (NEGATIVE); PH,URINE 7 (4.5-8.0); PROTEIN,URINE NEGATIVE (NEGATIVE); UROBILINOGEN,URINE NORMAL MG/DL (0.0-1.0)
[2016-08-10 15:42] LABS: RBC,URINE 0 /HPF (0 - 2); SQUAMOUS EPITHELIAL CELL,UR OCCASIONAL /LPF (NONE/OCC); WBC,URINE 0 /HPF (0 - 2)
[2016-08-10 16:18] VITALS: BP 102/56
[2016-08-10 20:29] VITALS: BP 123/72
[2016-08-11] VITALS: BP 114/59
[2016-08-11] MEDS: LORazepam Inj 2mg/ml 1ml IV PRN ×3 (00:37→15:47)
[2016-08-11] MEDS: D5 1/2NS 1,000 ML IV SCH ×2 (00:40→01:17)
[2016-08-11] MEDS ORDERED: Zosyn 3.375gm inj ONE (02:01)
[2016-08-11 06:03] VITALS: BP 126/72
[2016-08-11 07:55] LABS: ALANINE AMINOTRANSFERASE 23 U/L (3-33); ALBUMIN/GLOBULIN RATIO 1.3 (1.0-2.7); ANION GAP 13 (5-15); ASPARTATE AMINO TRANSFERASE 31 U/L (5-40); CALCIUM 8.6 mg/dL (8.6-10.2); CARBON DIOXIDE 26 mEQ/L (20-30); CHLORIDE 106 mEQ/L (98-107); CREATININE 0.9 mg/dL (0.5-0.9); HEMOLYSIS 4; MAGNESIUM 2.2 mg/dL (1.7-2.5); PHOSPHORUS 3.7 mg/dL (2.5-4.8); POTASSIUM 3.1 mEQ/L (3.4-4.9); SODIUM 145 mEQ/L (135-145); URIC ACID 2.2 mg/dL (3.0-7.5)
[2016-08-11 08:00] VITALS: BP 137/62
[2016-08-11] MEDS: Memantine 10mg tab ORAL SCH ×2 (08:36→17:52)
[2016-08-11] MEDS: Heparin 5000 units/ml inj SUBQ SCH ×2 (08:37→20:30)
[2016-08-11] MEDS: Donepezil 10mg tab ORAL SCH (08:37)
--- NOTE | 2016-08-11 11:40 | General Progress Note ---
Assessment/Plan Problem List: (1) Altered level of consciousness ICD Codes: R40.4 - Transient alteration of awareness SNOMED: 4037818 (2) Sepsis ICD Codes: A41.9 - Sepsis, unspecified organism SNOMED: 96775347 (3) UTI (urinary tract infection) ICD Codes: N39.0 - Urinary tract infection, site not specified SNOMED: 18470346 (4) Enteritis ICD Codes: K52.9 - Noninfective gastroenteritis and colitis, unspecified SNOMED: 37293299 Status: progressing Assessment/Plan low k treatment per renal ams sepsis and uti abx per id Subjective ROS Limited/Unobtainable: Yes Constitutional: Reports: no symptoms Allergies: Coded Allergies: No Known Allergies (Unverified , 05/08/16) Objective Last 24 Hour Vital Signs Date Time Temp Pulse Resp B/P Pulse Ox O2 Delivery O2 Flow Rate FiO2 08/11/16 08:00 97.4 66 18 137/62 100 Room Air 08/11/16 06:03 97.6 67 18 126/72 99 Room Air 08/11/16 00:00 98.0 62 18 114/59 97 Room Air 08/10/16 20:29 98.6 98 18 123/72 98 Room Air 08/10/16 16:18 98.1 69 19 102/56 96 Room Air 08/10/16 12:00 97.2 74 19 110/59 97 Room Air Intake and Output 08/10/16 08/11/16 19:00 07:00 Intake Total 425 ml 665 ml Balance 425 ml 665 ml Intake Oral 200 ml 240 ml IV Total 225 ml 425 ml # Voids 1 4 # Bowel Movements 1 Laboratory Tests 08/10/16 14:30: Urine Color Pale yellow, Urine Appearance Clear, Urine pH 7, Urine Specific [place] 1.005, Urine Protein Negative, Urine Glucose (UA) Negative, Urine Ketones Negative, Urine Occult Blood Negative, Urine Nitrite Negative, Urine Bilirubin Negative, Urine Urobilinogen Normal, Urine Leukocyte Esterase Negative , Urine RBC 0, Urine WBC 0, Urine Squamous Epithelial Cells Occasional, Urine Bacteria None 08/11/16 07:00: Sodium Level 145, Potassium Level 3.1L, Chloride Level 106, Carbon Dioxide Level 26, Anion Gap 13, Blood Urea Nitrogen 4L, Creatinine 0.9, Estimat Glomerular Filtration Rate , Glucose Level 92, Uric Acid 2.2L, Calcium Level 8.6 , Phosphorus Level 3.7, Magnesium Level 2.2, Total Bilirubin 0.5, Gamma Glutamyl Transpeptidase 19, Aspartate Amino Transf (AST/SGOT) 31, Alanine Aminotransferase (ALT/SGPT) 23, Alkaline Phosphatase 41, Total Protein 6.0L, Albumin 3.4L, Globulin 2.6, Albumin/Globulin Ratio 1.3 Height (Feet): 5 Height (Inches): 0.00 Weight (Pounds): 111 EENT: PERRL/EOMI Cardiovascular: regular rhythm Respiratory/Chest: lungs clear Abdomen: soft Anna Bean MD Aug 11, 2016 11:40
--- NOTE | 2016-08-11 11:41 | General Progress Note ---
Assessment/Plan Status: stable Assessment/Plan HTN controlled- Low K replaced PH - Abdominal pain with vomiting secondary to acute pancreatitis. - Alzheimer's dementia. - Possible enteritis. Plan: Watch BP on current treatment- Watch electrolytes in view of vomiting continue per GI- check UA: Negative Subjective ROS Limited/Unobtainable: No Constitutional: Reports: malaise, other - agitated at times Allergies: Coded Allergies: No Known Allergies (Unverified , 05/08/16) Objective Last 24 Hour Vital Signs Date Time Temp Pulse Resp B/P Pulse Ox O2 Delivery O2 Flow Rate FiO2 08/11/16 08:00 97.4 66 18 137/62 100 Room Air 08/11/16 06:03 97.6 67 18 126/72 99 Room Air 08/11/16 00:00 98.0 62 18 114/59 97 Room Air 08/10/16 20:29 98.6 98 18 123/72 98 Room Air 08/10/16 16:18 98.1 69 19 102/56 96 Room Air 08/10/16 12:00 97.2 74 19 110/59 97 Room Air Intake and Output 08/10/16 08/11/16 19:00 07:00 Intake Total 425 ml 665 ml Balance 425 ml 665 ml Intake Oral 200 ml 240 ml IV Total 225 ml 425 ml # Voids 1 4 # Bowel Movements 1 Laboratory Tests 08/10/16 14:30: Urine Color Pale yellow, Urine Appearance Clear, Urine pH 7, Urine Specific [place] 1.005, Urine Protein Negative, Urine Glucose (UA) Negative, Urine Ketones Negative, Urine Occult Blood Negative, Urine Nitrite Negative, Urine Bilirubin Negative, Urine Urobilinogen Normal, Urine Leukocyte Esterase Negative , Urine RBC 0, Urine WBC 0, Urine Squamous Epithelial Cells Occasional, Urine Bacteria None 08/11/16 07:00: Sodium Level 145, Potassium Level 3.1L, Chloride Level 106, Carbon Dioxide Level 26, Anion Gap 13, Blood Urea Nitrogen 4L, Creatinine 0.9, Estimat Glomerular Filtration Rate , Glucose Level 92, Uric Acid 2.2L, Calcium Level 8.6 , Phosphorus Level 3.7, Magnesium Level 2.2, Total Bilirubin 0.5, Gamma Glutamyl Transpeptidase 19, Aspartate Amino Transf (AST/SGOT) 31, Alanine Aminotransferase (ALT/SGPT) 23, Alkaline Phosphatase 41, Total Protein 6.0L, Albumin 3.4L, Globulin 2.6, Albumin/Globulin Ratio 1.3 Height (Feet): 5 Height (Inches): 0.00 Weight (Pounds): 111 General Appearance: no apparent distress Objective PE not changed ANDRE MAXWELL Aug 11, 2016 11:41
[2016-08-11 12:00] VITALS: BP 128/64
--- NOTE | 2016-08-11 13:04 | Neurology Progress Note ---
Interim History Interim History Interim History Ms. Olmstead feels better. As per her sitter she is eating well. She is alert and awake today. She however is cognitively impoverished. She is generally stronger and is able to walk now. She jus got back from the bathroom. Review of Systems Neuro Review of Systems Benign. Objective Physical Exam Last Vital Signs Date Time Temp Pulse Resp B/P Pulse Ox O2 Delivery O2 Flow Rate FiO2 08/11/16 12:00 97.6 70 18 128/64 100 Room Air Laboratory Tests Test 08/10/16 14:30 08/11/16 07:00 Urine Color Pale yellow Urine Appearance Clear Urine pH 7 (4.5-8.0) Urine Specific [place] 1.005 (1.005-1.035) Urine Protein Negative (NEGATIVE) Urine Glucose (UA) Negative (NEGATIVE) Urine Ketones Negative (NEGATIVE) Urine Occult Blood Negative (NEGATIVE) Urine Nitrite Negative (NEGATIVE) Urine Bilirubin Negative (NEGATIVE) Urine Urobilinogen Normal MG/DL (0.0-1.0) Urine Leukocyte Esterase Negative (NEGATIVE) Urine RBC 0 /HPF (0 - 2) Urine WBC 0 /HPF (0 - 2) Urine Squamous Epithelial Cells Occasional /LPF Urine Bacteria None /HPF (NONE) Sodium Level 145 mEQ/L (135-145) Potassium Level 3.1 mEQ/L (3.4-4.9) L Chloride Level 106 mEQ/L (98-107) Carbon Dioxide Level 26 mEQ/L (20-30) Anion Gap 13 (5-15) Blood Urea Nitrogen 4 mg/dL (7-23) L Creatinine 0.9 mg/dL (0.5-0.9) Estimat Glomerular Filtration Rate mL/min (>60) Glucose Level 92 mg/dL (74-106) Uric Acid 2.2 mg/dL (3.0-7.5) L Calcium Level 8.6 mg/dL (8.6-10.2) Phosphorus Level 3.7 mg/dL (2.5-4.8) Magnesium Level 2.2 mg/dL (1.7-2.5) Total Bilirubin 0.5 mg/dL (0.0-1.2) Gamma Glutamyl Transpeptidase 19 U/L (5-36) Aspartate Amino Transf (AST/SGOT) 31 U/L (5-40) Alanine Aminotransferase (ALT/SGPT) 23 U/L (3-33) Alkaline Phosphatase 41 U/L (35-104) Total Protein 6.0 g/dL (6.6-8.7) L Albumin 3.4 g/dL (3.5-5.2) L Globulin 2.6 g/dL Albumin/Globulin Ratio 1.3 (1.0-2.7) Neurologic Exam Objective PHYSICAL EXAMINATION: GENERAL: She is a well-developed, well-nourished, [place] lady, lying in bed in no acute distress. HEAD: Normocephalic and atraumatic. EENT: Examination benign. NECK: No neck rigidity was observed. NEUROLOGIC EXAMINATION: MENTAL STATUS EXAMINATION: She was awake and alert. She was oriented to self only. She had no idea of where she was or what the date was. She was unable to cooperate for further mental status tests. SPEECH: She had no dysarthria LANGUAGE: Normal in Faroese. CRANIAL NERVE EXAMINATION: II: She counted fingers accurately. III, IV & : The external ocular movements were full The pupils were 3 mm in diameter, equal, round, regular, reactive sluggishly to light. V: The facial sensations were normal and the temporales, masseters and pterygoids functioned well. VII: She had normal facial expressions and no facial asymmetry. VIII: She was able to hear well and had no nystagmus. IX: The palate moved symmetrically on phonation. X: She had no hoarseness of voice. XI: The sternocleidomastoids and trapezii did function. XII: The tongue was in midline. MOTOR SYSTEM: The tone was normal in all four extremities. Examination of muscle mass revealed no focal wasting. Examination of power revealed G 5/5 in all muscle groups. SENSORY EXAMINATION: She had intact sensations to pin prick and light touch. REFLEXES: 1+ and bilaterally symmetrical at the biceps, triceps, brachioradialis , and knees and 0 at both ankles. The plantar responses were flexor bilaterally. COORDINATION: She performed well on [id number] testing. STANCE & GAIT: She stood and walked well with contact guard. Impression/Recommendations Diagnostic Impression 1. Ms. Cherelle Olmstead is a 70-year-old, right-handed, [place] lady, who does have a past history of psychiatric illness and dementia, who was hospitalized for an altered mental state related to possible sepsis. 2. She looks and feels much better today. She is awake and responsive. She is also able to stand and walk. As per her sitter she is still agitated at times. 3. On neurological examination, at this time, she is awake and alert. She however is disoriented to place and time. She also demonstrates significant cognitive dysfunction. She, however, does not demonstrate any focal or lateralizing findings. 4. Laboratory data thus far have revealed that her hemoglobin is 12.0 and her WBC count is 8.8. Her chemistry panel is relatively benign except for an anion gap of 17. Her glucose is elevated to 147. Her AST and ALT are also elevated. Her CK was also elevated to 496. Her B12, Folate and TSH are normal. 5. The patient's history and neurological examination are most compatible with an acute toxic encephalopathy, possibly related to her acute infectious process , superimposed on her underlying dementia. She is stabilizing neurologically. Recommendations 1. Continue present management. 2. Continue to correct the patient's fluid and electrolyte imbalance. 3. Continue to treat the patient's acute infectious process. 4. Increase activity as tolerated. Andi Almanzar M.D., M.S.P.H. ANDI ALMANZAR Aug 11, 2016 13:04
--- NOTE | 2016-08-11 15:14 | Pulmonology Progress Note ---
Assessment/Plan Problems: (1) Sepsis (2) UTI (urinary tract infection) (3) Alzheimer's dementia (4) Hypertension Assessment/Plan improving continue antibiotics check cultures dvt prophylaxis monitor bp dc planning Subjective ROS Limited/Unobtainable: Yes - loo Interval Events: looks comfortable, NAD Allergies: Coded Allergies: No Known Allergies (Unverified , 05/08/16) Objective Last 24 Hour Vital Signs Date Time Temp Pulse Resp B/P Pulse Ox O2 Delivery O2 Flow Rate FiO2 08/11/16 12:00 97.6 70 18 128/64 100 Room Air 08/11/16 08:00 97.4 66 18 137/62 100 Room Air 08/11/16 06:03 97.6 67 18 126/72 99 Room Air 08/11/16 00:00 98.0 62 18 114/59 97 Room Air 08/10/16 20:29 98.6 98 18 123/72 98 Room Air 08/10/16 16:18 98.1 69 19 102/56 96 Room Air Intake and Output 08/10/16 08/11/16 19:00 07:00 Intake Total 425 ml 665 ml Balance 425 ml 665 ml Intake Oral 200 ml 240 ml IV Total 225 ml 425 ml # Voids 1 4 # Bowel Movements 1 General Appearance: WD/WN HEENT: normocephalic, atraumatic Cardiovascular: normal peripheral pulses, normal rate Abdomen: normal bowel sounds, soft, non tender Genitourinary: normal external genitalia Extremities: no cyanosis, no clubbing Skin: no rash, no ulcers Neurologic/Psychiatric: nanotechnician II-XII grossly normal, no motor/sensory deficits Lymphatic: no neck adenopathy Musculoskeletal: normal muscle bulk Microbiology Date/Time Source Procedure Growth Status 08/08/16 21:50 Nasal Nares MRSA Culture - Final NO METHICILLIN RESISTANT STAPH AUREUS... Complete 08/08/16 21:50 Rectum VRE Culture - Final NO VANCOMYCIN RESISTANT ENTEROCOCCUS ... Complete Laboratory Tests 08/11/16 07:00: Sodium Level 145, Potassium Level 3.1L, Chloride Level 106, Carbon Dioxide Level 26, Anion Gap 13, Blood Urea Nitrogen 4L, Creatinine 0.9, Estimat Glomerular Filtration Rate , Glucose Level 92, Uric Acid 2.2L, Calcium Level 8.6 , Phosphorus Level 3.7, Magnesium Level 2.2, Total Bilirubin 0.5, Gamma Glutamyl Transpeptidase 19, Aspartate Amino Transf (AST/SGOT) 31, Alanine Aminotransferase (ALT/SGPT) 23, Alkaline Phosphatase 41, Total Protein 6.0L, Albumin 3.4L, Globulin 2.6, Albumin/Globulin Ratio 1.3 Current Medications Medications (Trade) Dose Ordered Sig/Daniella Route PRN Reason Start Time Stop Time Status Last Admin Dose Admin Acetaminophen (Tylenol) 650 mg Q4H PRN ORAL fever 08/09/16 22:00 09/08/16 21:59 Dextrose (Dextrose 50%) STAT PRN IV Hypoglycemia 08/09/16 22:20 09/08/16 22:19 Donepezil HCl (Aricept) 10 mg DAILY ORAL 08/10/16 09:00 09/09/16 08:59 08/11/16 08:37 Heparin Sodium (Porcine) (Heparin 5000 units/ml) 5,000 units EVERY 12 HOURS SUBQ 08/10/16 09:00 09/09/16 08:59 08/11/16 08:37 Levetiracetam (Keppra) 250 mg DAILY ORAL 08/10/16 09:00 09/09/16 08:59 08/11/16 08:37 Lorazepam (Ativan 2mg/ml 1ml) 1 mg Q2H PRN IV Agitation 08/09/16 22:00 08/16/16 21:59 08/11/16 08:36 Memantine (Namenda) 10 mg BID ORAL 08/10/16 09:00 09/09/16 08:59 08/11/16 08:36 Morphine Sulfate (Morphine Sulfate) 2 mg Q4H PRN IVP severe Pain (Pain Scale 7-10) 08/09/16 22:00 08/16/16 21:59 Nitroglycerin (Ntg) 0.4 mg Q5M X 3 DOSES PRN SL Prn Chest Pain 08/09/16 21:45 09/08/16 21:44 Ondansetron HCl (Zofran) 4 mg Q6H PRN IVP Nausea & Vomiting 08/10/16 22:00 09/09/16 21:59 Piperacillin Sod/ Tazobactam Sod/ Sodium Chloride (Zosyn/Sodium Chloride 100ml bag) 100 ml @ 25 mls/hr Q8H IVPB 08/10/16 02:00 08/14/16 01:59 08/11/16 10:01 Polyethylene Glycol (Miralax) 17 gm HSPRN PRN ORAL Constipation 08/09/16 22:00 09/08/16 21:59 Quetiapine Fumarate (SEROquel) 25 mg DAILY ORAL 08/10/16 09:00 09/09/16 08:59 08/11/16 08:36 Temazepam (Restoril) 15 mg HSPRN PRN ORAL Insomnia 08/09/16 22:00 08/16/16 21:59 MEG SAMUELS Aug 11, 2016 15:14
--- NOTE | 2016-08-11 15:19 | Infectious Diseases Prog Note ---
Assessment/Plan Problems: (1) Enteritis Assessment & Plan: stool for culture and C diff are ordered but not done yet since she doesn't have any bowel movements yet , will D/C zosyn and start flagyl empirically and observe (2) Sepsis Assessment & Plan: await blood culture (3) Alzheimer's dementia Assessment & Plan: continue supportive care and meds (4) Hypertension Assessment & Plan: continue meds to keep SBP< 140 (5) Altered level of consciousness Assessment & Plan: doubt due to sepsis, D/C zosyn, neurology is following Subjective ROS Limited/Unobtainable: Yes Allergies: Coded Allergies: No Known Allergies (Unverified , 05/08/16) Subjective she is demented, lying in bed, not in distress , afebrile. Objective Vital Signs Last 24 Hour Vital Signs Date Time Temp Pulse Resp B/P Pulse Ox O2 Delivery O2 Flow Rate FiO2 08/11/16 12:00 97.6 70 18 128/64 100 Room Air 08/11/16 08:00 97.4 66 18 137/62 100 Room Air 08/11/16 06:03 97.6 67 18 126/72 99 Room Air 08/11/16 00:00 98.0 62 18 114/59 97 Room Air 08/10/16 20:29 98.6 98 18 123/72 98 Room Air 08/10/16 16:18 98.1 69 19 102/56 96 Room Air Height (Feet): 5 Height (Inches): 0.00 Weight (Pounds): 111 General Appearance: WD/WN, no acute distress HEENT: normocephalic, atraumatic, anicteric, mucous membranes moist Respiratory/Chest: chest wall non-tender, lungs clear, normal breath sounds, no respiratory distress, no accessory muscle use Cardiovascular: normal peripheral pulses, normal rate, regular rhythm, no gallop/murmur Abdomen: normal bowel sounds, soft, non tender, no organomegaly, non distended , no mass Extremities: no cyanosis, no clubbing Skin: no rash, no lesions Microbiology Date/Time Source Procedure Growth Status 08/08/16 21:50 Nasal Nares MRSA Culture - Final NO METHICILLIN RESISTANT STAPH AUREUS... Complete 08/08/16 21:50 Rectum VRE Culture - Final NO VANCOMYCIN RESISTANT ENTEROCOCCUS ... Complete Laboratory Tests Test 08/11/16 07:00 Sodium Level 145 mEQ/L (135-145) Potassium Level 3.1 mEQ/L (3.4-4.9) L Chloride Level 106 mEQ/L (98-107) Carbon Dioxide Level 26 mEQ/L (20-30) Anion Gap 13 (5-15) Blood Urea Nitrogen 4 mg/dL (7-23) L Creatinine 0.9 mg/dL (0.5-0.9) Estimat Glomerular Filtration Rate mL/min (>60) Glucose Level 92 mg/dL (74-106) Uric Acid 2.2 mg/dL (3.0-7.5) L Calcium Level 8.6 mg/dL (8.6-10.2) Phosphorus Level 3.7 mg/dL (2.5-4.8) Magnesium Level 2.2 mg/dL (1.7-2.5) Total Bilirubin 0.5 mg/dL (0.0-1.2) Gamma Glutamyl Transpeptidase 19 U/L (5-36) Aspartate Amino Transf (AST/SGOT) 31 U/L (5-40) Alanine Aminotransferase (ALT/SGPT) 23 U/L (3-33) Alkaline Phosphatase 41 U/L (35-104) Total Protein 6.0 g/dL (6.6-8.7) L Albumin 3.4 g/dL (3.5-5.2) L Globulin 2.6 g/dL Albumin/Globulin Ratio 1.3 (1.0-2.7) Current Medications Medications (Trade) Dose Ordered Sig/Daniella Route PRN Reason Start Time Stop Time Status Last Admin Dose Admin Acetaminophen (Tylenol) 650 mg Q4H PRN ORAL fever 08/09/16 22:00 09/08/16 21:59 Dextrose (Dextrose 50%) STAT PRN IV Hypoglycemia 08/09/16 22:20 09/08/16 22:19 Donepezil HCl (Aricept) 10 mg DAILY ORAL 08/10/16 09:00 09/09/16 08:59 08/11/16 08:37 Heparin Sodium (Porcine) (Heparin 5000 units/ml) 5,000 units EVERY 12 HOURS SUBQ 08/10/16 09:00 09/09/16 08:59 08/11/16 08:37 Levetiracetam (Keppra) 250 mg DAILY ORAL 08/10/16 09:00 09/09/16 08:59 08/11/16 08:37 Lorazepam (Ativan 2mg/ml 1ml) 1 mg Q2H PRN IV Agitation 08/09/16 22:00 08/16/16 21:59 08/11/16 08:36 Memantine (Namenda) 10 mg BID ORAL 08/10/16 09:00 09/09/16 08:59 08/11/16 08:36 Morphine Sulfate (Morphine Sulfate) 2 mg Q4H PRN IVP severe Pain (Pain Scale 7-10) 08/09/16 22:00 08/16/16 21:59 Nitroglycerin (Ntg) 0.4 mg Q5M X 3 DOSES PRN SL Prn Chest Pain 08/09/16 21:45 09/08/16 21:44 Ondansetron HCl (Zofran) 4 mg Q6H PRN IVP Nausea & Vomiting 08/10/16 22:00 09/09/16 21:59 Piperacillin Sod/ Tazobactam Sod/ Sodium Chloride (Zosyn/Sodium Chloride 100ml bag) 100 ml @ 25 mls/hr Q8H IVPB 08/10/16 02:00 08/14/16 01:59 08/11/16 10:01 Polyethylene Glycol (Miralax) 17 gm HSPRN PRN ORAL Constipation 08/09/16 22:00 09/08/16 21:59 Quetiapine Fumarate (SEROquel) 25 mg DAILY ORAL 08/10/16 09:00 09/09/16 08:59 08/11/16 08:36 Temazepam (Restoril) 15 mg HSPRN PRN ORAL Insomnia 08/09/16 22:00 08/16/16 21:59 Kasandra Strong M.D. Aug 11, 2016 15:19
[2016-08-11 16:06] VITALS: BP 130/64
[2016-08-11] MEDS: metroNIDAZOLE 500mg tab ORAL SCH ×2 (16:28→22:20)
[2016-08-11] MEDS ORDERED: D5 1/2NS 1000ml IV ONE (17:03)
--- NOTE | 2016-08-11 17:16 | General Progress Note ---
Assessment/Plan Assessment/Plan Assessment - N/V - improved - abnormal LFT - improved - HTN - OBS - Anxiety Recommendations - PO diet as tolerated - follow LFT - Await formal CT reading - check hepatitis serologies Subjective Allergies: Coded Allergies: No Known Allergies (Unverified , 05/08/16) Subjective agitated at times d/w sitter po fair Objective Last 24 Hour Vital Signs Date Time Temp Pulse Resp B/P Pulse Ox O2 Delivery O2 Flow Rate FiO2 08/11/16 16:06 97.0 68 18 130/64 100 Room Air 08/11/16 12:00 97.6 70 18 128/64 100 Room Air 08/11/16 08:00 97.4 66 18 137/62 100 Room Air 08/11/16 06:03 97.6 67 18 126/72 99 Room Air 08/11/16 00:00 98.0 62 18 114/59 97 Room Air 08/10/16 20:29 98.6 98 18 123/72 98 Room Air Intake and Output 08/10/16 08/11/16 19:00 07:00 Intake Total 425 ml 665 ml Balance 425 ml 665 ml Intake Oral 200 ml 240 ml IV Total 225 ml 425 ml # Voids 1 4 # Bowel Movements 1 Laboratory Tests 08/11/16 07:00: Sodium Level 145, Potassium Level 3.1L, Chloride Level 106, Carbon Dioxide Level 26, Anion Gap 13, Blood Urea Nitrogen 4L, Creatinine 0.9, Estimat Glomerular Filtration Rate , Glucose Level 92, Uric Acid 2.2L, Calcium Level 8.6 , Phosphorus Level 3.7, Magnesium Level 2.2, Total Bilirubin 0.5, Gamma Glutamyl Transpeptidase 19, Aspartate Amino Transf (AST/SGOT) 31, Alanine Aminotransferase (ALT/SGPT) 23, Alkaline Phosphatase 41, Total Protein 6.0L, Albumin 3.4L, Globulin 2.6, Albumin/Globulin Ratio 1.3 Height (Feet): 5 Height (Inches): 0.00 Weight (Pounds): 111 Objective Elderly woman NCAT supple CTA RR soft ND NT no edema OBS JUAN CARLOS WEIR Aug 11, 2016 17:16
[2016-08-11] MEDS: Morphine Sulfate 2mg/ml Inj IVP PRN (18:10)
[2016-08-11 20:00] VITALS: BP 107/61
[2016-08-12] VITALS: BP 108/55
[2016-08-12] MEDS: LORazepam Inj 2mg/ml 1ml IV PRN (03:30)
[2016-08-12 06:00] VITALS: BP 108/66
[2016-08-12] MEDS: metroNIDAZOLE 500mg tab ORAL SCH ×3 (06:01→22:13)
[2016-08-12 07:25] LABS: EOSINOPHILS % (AUTO) 1.1 % (0.0-3.0); LYMPHOCYTES % (AUTO) 36.4 % (20.0-45.0); MEAN CORPUSCULAR HEMOGLOBIN 32.3 PG (27.0-31.0); MEAN CORPUSCULAR HGB CONC 31.7 G/DL (32.0-36.0); MEAN CORPUSCULAR VOLUME 102 FL (80-99); MEAN PLATELET VOLUME 7.1 FL (6.5-10.1); MONOCYTES % (AUTO) 6.3 % (1.0-10.0); NEUTROPHILS % (AUTO) 55.3 % (45.0-75.0); PLATELET COUNT 230 K/UL (150-450); RED CELL DISTRIBUTION WIDTH 11.9 % (11.6-14.8)
[2016-08-12 07:37] LABS: ALANINE AMINOTRANSFERASE 28 U/L (3-33); ALBUMIN/GLOBULIN RATIO 1.2 (1.0-2.7); ANION GAP 15 (5-15); ASPARTATE AMINO TRANSFERASE 39 U/L (5-40); CALCIUM 9.4 mg/dL (8.6-10.2); CARBON DIOXIDE 25 mEQ/L (20-30); CHLORIDE 105 mEQ/L (98-107); CREATININE 0.9 mg/dL (0.5-0.9); HEMOLYSIS 7; MAGNESIUM 2.2 mg/dL (1.7-2.5); PHOSPHORUS 3.5 mg/dL (2.5-4.8); POTASSIUM 3.6 mEQ/L (3.4-4.9); SODIUM 145 mEQ/L (135-145)
[2016-08-12 08:00] VITALS: BP 131/67
[2016-08-12] MEDS: Donepezil 10mg tab ORAL SCH (09:41)
[2016-08-12] MEDS: Memantine 10mg tab ORAL SCH ×2 (09:41→18:05)
[2016-08-12] MEDS: Heparin 5000 units/ml inj SUBQ SCH ×2 (09:42→22:18)
--- NOTE | 2016-08-12 10:33 | GI Progress Note ---
Assessment/Plan Problems: (1) Enteritis ICD Codes: K52.9 - Noninfective gastroenteritis and colitis, unspecified SNOMED: 84345089 (2) Alzheimer's dementia ICD Codes: G30.9 - Alzheimer's disease, unspecified SNOMED: 02190248 (3) Altered level of consciousness ICD Codes: R40.4 - Transient alteration of awareness SNOMED: 8761877 (4) Gastric wall thickening ICD Codes: K31.89 - Other diseases of stomach and duodenum SNOMED: 98776117 (5) Dilated bowel SNOMED: 29705291 Status: unchanged Status Narrative Discussed with Dr. Newsome. Assessment/Plan - N/V - improved - abnormal LFT - improved - HTN - OBS - Anxiety Recommendations - PO diet as tolerated - follow LFT - Await formal CT reading - check hepatitis serologies Subjective Subjective limited, no reports by sitter Objective Last 24 Hour Vital Signs Date Time Temp Pulse Resp B/P Pulse Ox O2 Delivery O2 Flow Rate FiO2 08/12/16 06:00 97.7 67 18 108/66 98 Room Air 08/12/16 00:00 98.1 62 16 108/55 98 Room Air 08/11/16 20:00 97.7 69 14 107/61 97 Room Air 08/11/16 18:40 97.0 08/11/16 16:06 97.0 68 18 130/64 100 Room Air 08/11/16 12:00 97.6 70 18 128/64 100 Room Air Intake and Output 08/11/16 08/12/16 18:59 06:59 Intake Total 675 ml 290 ml Balance 675 ml 290 ml Intake Oral 200 ml 290 ml IV Total 475 ml # Voids 2 4 # Bowel Movements 3 2 Laboratory Tests Test 08/12/16 05:55 White Blood Count 9.0 K/UL (4.8-10.8) Red Blood Count 4.50 M/UL (4.20-5.40) Hemoglobin 14.5 G/DL (12.0-16.0) Hematocrit 45.8 % (37.0-47.0) Mean Corpuscular Volume 102 FL (80-99) H Mean Corpuscular Hemoglobin 32.3 PG (27.0-31.0) H Mean Corpuscular Hemoglobin Concent 31.7 G/DL (32.0-36.0) L Red Cell Distribution Width 11.9 % (11.6-14.8) Platelet Count 230 K/UL (150-450) Mean Platelet Volume 7.1 FL (6.5-10.1) Neutrophils (%) (Auto) 55.3 % (45.0-75.0) Lymphocytes (%) (Auto) 36.4 % (20.0-45.0) Monocytes (%) (Auto) 6.3 % (1.0-10.0) Eosinophils (%) (Auto) 1.1 % (0.0-3.0) Basophils (%) (Auto) 1.0 % (0.0-2.0) Sodium Level 145 mEQ/L (135-145) Potassium Level 3.6 mEQ/L (3.4-4.9) Chloride Level 105 mEQ/L (98-107) Carbon Dioxide Level 25 mEQ/L (20-30) Anion Gap 15 (5-15) Blood Urea Nitrogen 4 mg/dL (7-23) L Creatinine 0.9 mg/dL (0.5-0.9) Estimat Glomerular Filtration Rate mL/min (>60) Glucose Level 87 mg/dL (74-106) Calcium Level 9.4 mg/dL (8.6-10.2) Phosphorus Level 3.5 mg/dL (2.5-4.8) Magnesium Level 2.2 mg/dL (1.7-2.5) Total Bilirubin 0.4 mg/dL (0.0-1.2) Gamma Glutamyl Transpeptidase 20 U/L (5-36) Aspartate Amino Transf (AST/SGOT) 39 U/L (5-40) Alanine Aminotransferase (ALT/SGPT) 28 U/L (3-33) Alkaline Phosphatase 49 U/L (35-104) Total Protein 7.0 g/dL (6.6-8.7) Albumin 3.9 g/dL (3.5-5.2) Globulin 3.1 g/dL Albumin/Globulin Ratio 1.2 (1.0-2.7) Microbiology Date/Time Source Procedure Growth Status 08/11/16 14:20 Stool Clostridium difficile Toxin Assay - Final Complete Height (Feet): 5 Height (Inches): 0.00 Weight (Pounds): 111 General Appearance: no apparent distress Cardiovascular: normal rate Respiratory/Chest: normal breath sounds, no respiratory distress Abdominal Exam: normal bowel sounds, non tender, soft Extremities: normal range of motion Marilee Salcedo N.P. Aug 12, 2016 10:33
[2016-08-12] MEDS: Morphine Sulfate 2mg/ml Inj IVP PRN ×2 (10:54→16:06)
[2016-08-12 11:57] VITALS: BP 105/60
--- NOTE | 2016-08-12 15:00 | General Progress Note ---
Assessment/Plan Problem List: (1) Altered level of consciousness ICD Codes: R40.4 - Transient alteration of awareness SNOMED: 7316262 (2) Sepsis ICD Codes: A41.9 - Sepsis, unspecified organism SNOMED: 89958878 (3) UTI (urinary tract infection) ICD Codes: N39.0 - Urinary tract infection, site not specified SNOMED: 81209031 (4) Enteritis ICD Codes: K52.9 - Noninfective gastroenteritis and colitis, unspecified SNOMED: 96625086 Status: progressing Assessment/Plan reviewed chart and labs sepsis and uti Subjective ROS Limited/Unobtainable: Yes Constitutional: Reports: no symptoms Allergies: Coded Allergies: No Known Allergies (Unverified , 05/08/16) Objective Last 24 Hour Vital Signs Date Time Temp Pulse Resp B/P Pulse Ox O2 Delivery O2 Flow Rate FiO2 08/12/16 11:57 97.2 64 20 105/60 97 Room Air 08/12/16 08:00 97.0 81 20 131/67 98 Room Air 08/12/16 06:00 97.7 67 18 108/66 98 Room Air 08/12/16 00:00 98.1 62 16 108/55 98 Room Air 08/11/16 20:00 97.7 69 14 107/61 97 Room Air 08/11/16 18:40 97.0 08/11/16 16:06 97.0 68 18 130/64 100 Room Air Intake and Output 08/11/16 08/12/16 19:00 07:00 Intake Total 675 ml 290 ml Balance 675 ml 290 ml Intake Oral 200 ml 290 ml IV Total 475 ml # Voids 2 4 # Bowel Movements 3 2 Laboratory Tests 08/12/16 05:55: White Blood Count 9.0, Red Blood Count 4.50, Hemoglobin 14.5, Hematocrit 45.8, Mean Corpuscular Volume 102H, Mean Corpuscular Hemoglobin 32.3H, Mean Corpuscular Hemoglobin Concent 31.7L, Red Cell Distribution Width 11.9, Platelet Count 230, Mean Platelet Volume 7.1, Neutrophils (%) (Auto) 55.3, Lymphocytes (%) (Auto) 36.4, Monocytes (%) (Auto) 6.3, Eosinophils (%) (Auto) 1.1, Basophils (%) (Auto) 1.0, Sodium Level 145, Potassium Level 3.6, Chloride Level 105, Carbon Dioxide Level 25, Anion Gap 15, Blood Urea Nitrogen 4L, Creatinine 0.9, Estimat Glomerular Filtration Rate , Glucose Level 87, Calcium Level 9.4, Phosphorus Level 3.5, Magnesium Level 2.2, Total Bilirubin 0.4, Gamma Glutamyl Transpeptidase 20, Aspartate Amino Transf (AST/SGOT) 39, Alanine Aminotransferase (ALT/SGPT) 28, Alkaline Phosphatase 49, Total Protein 7.0, Albumin 3.9, Globulin 3.1, Albumin/Globulin Ratio 1.2 Height (Feet): 5 Height (Inches): 0.00 Weight (Pounds): 111 EENT: PERRL/EOMI Neck: supple Cardiovascular: normal rate Respiratory/Chest: lungs clear Abdomen: soft Anna Bean MD Aug 12, 2016 15:00
--- NOTE | 2016-08-12 15:25 | General Progress Note ---
Assessment/Plan Status: stable - from renal stand Assessment/Plan HTN controlled- Low K replaced PH - Abdominal pain with vomiting secondary to acute pancreatitis. - Alzheimer's dementia. - Possible enteritis. Plan: Watch BP on current treatment- Watch electrolytes in view of vomiting continue per GI- check UA: Negative Subjective ROS Limited/Unobtainable: No Constitutional: Reports: malaise, weakness Allergies: Coded Allergies: No Known Allergies (Unverified , 05/08/16) Objective Last 24 Hour Vital Signs Date Time Temp Pulse Resp B/P Pulse Ox O2 Delivery O2 Flow Rate FiO2 08/12/16 11:57 97.2 64 20 105/60 97 Room Air 08/12/16 08:00 97.0 81 20 131/67 98 Room Air 08/12/16 06:00 97.7 67 18 108/66 98 Room Air 08/12/16 00:00 98.1 62 16 108/55 98 Room Air 08/11/16 20:00 97.7 69 14 107/61 97 Room Air 08/11/16 18:40 97.0 08/11/16 16:06 97.0 68 18 130/64 100 Room Air Intake and Output 08/11/16 08/12/16 19:00 07:00 Intake Total 675 ml 290 ml Balance 675 ml 290 ml Intake Oral 200 ml 290 ml IV Total 475 ml # Voids 2 4 # Bowel Movements 3 2 Laboratory Tests 08/12/16 05:55: White Blood Count 9.0, Red Blood Count 4.50, Hemoglobin 14.5, Hematocrit 45.8, Mean Corpuscular Volume 102H, Mean Corpuscular Hemoglobin 32.3H, Mean Corpuscular Hemoglobin Concent 31.7L, Red Cell Distribution Width 11.9, Platelet Count 230, Mean Platelet Volume 7.1, Neutrophils (%) (Auto) 55.3, Lymphocytes (%) (Auto) 36.4, Monocytes (%) (Auto) 6.3, Eosinophils (%) (Auto) 1.1, Basophils (%) (Auto) 1.0, Sodium Level 145, Potassium Level 3.6, Chloride Level 105, Carbon Dioxide Level 25, Anion Gap 15, Blood Urea Nitrogen 4L, Creatinine 0.9, Estimat Glomerular Filtration Rate , Glucose Level 87, Calcium Level 9.4, Phosphorus Level 3.5, Magnesium Level 2.2, Total Bilirubin 0.4, Gamma Glutamyl Transpeptidase 20, Aspartate Amino Transf (AST/SGOT) 39, Alanine Aminotransferase (ALT/SGPT) 28, Alkaline Phosphatase 49, Total Protein 7.0, Albumin 3.9, Globulin 3.1, Albumin/Globulin Ratio 1.2 Height (Feet): 5 Height (Inches): 0.00 Weight (Pounds): 111 General Appearance: no apparent distress Objective PE not changed ANDRE MAXWELL Aug 12, 2016 15:25
[2016-08-12 16:00] VITALS: BP 130/57
--- NOTE | 2016-08-12 17:37 | Infectious Diseases Prog Note ---
Assessment/Plan Problems: (1) Enteritis Assessment & Plan: stool for culture and C diff are ordered but not done yet since she doesn't have any bowel movements yet , continue flagyl empirically and observe (2) Sepsis Assessment & Plan: await blood culture (3) Alzheimer's dementia Assessment & Plan: continue supportive care and meds (4) Hypertension Assessment & Plan: continue meds to keep SBP< 140 (5) Altered level of consciousness Assessment & Plan: doubt due to sepsis, D/C zosyn, neurology is following Subjective ROS Limited/Unobtainable: Yes Allergies: Coded Allergies: No Known Allergies (Unverified , 05/08/16) Subjective she is demented, lying in bed, not in distress , afebrile. Objective Vital Signs Last 24 Hour Vital Signs Date Time Temp Pulse Resp B/P Pulse Ox O2 Delivery O2 Flow Rate FiO2 08/12/16 11:57 97.2 64 20 105/60 97 Room Air 08/12/16 08:00 97.0 81 20 131/67 98 Room Air 08/12/16 06:00 97.7 67 18 108/66 98 Room Air 08/12/16 00:00 98.1 62 16 108/55 98 Room Air 08/11/16 20:00 97.7 69 14 107/61 97 Room Air 08/11/16 18:40 97.0 Height (Feet): 5 Height (Inches): 0.00 Weight (Pounds): 111 General Appearance: WD/WN, no acute distress HEENT: normocephalic, atraumatic, anicteric Respiratory/Chest: chest wall non-tender, lungs clear, normal breath sounds, no respiratory distress, no accessory muscle use Cardiovascular: normal peripheral pulses, normal rate, regular rhythm, no gallop/murmur Abdomen: normal bowel sounds, soft, non tender, no organomegaly, non distended , no mass Extremities: no cyanosis, no clubbing Skin: no rash, no lesions, no ulcers Microbiology Date/Time Source Procedure Growth Status 08/11/16 14:20 Stool Clostridium difficile Toxin Assay - Final Complete Laboratory Tests Test 08/12/16 05:55 White Blood Count 9.0 K/UL (4.8-10.8) Red Blood Count 4.50 M/UL (4.20-5.40) Hemoglobin 14.5 G/DL (12.0-16.0) Hematocrit 45.8 % (37.0-47.0) Mean Corpuscular Volume 102 FL (80-99) H Mean Corpuscular Hemoglobin 32.3 PG (27.0-31.0) H Mean Corpuscular Hemoglobin Concent 31.7 G/DL (32.0-36.0) L Red Cell Distribution Width 11.9 % (11.6-14.8) Platelet Count 230 K/UL (150-450) Mean Platelet Volume 7.1 FL (6.5-10.1) Neutrophils (%) (Auto) 55.3 % (45.0-75.0) Lymphocytes (%) (Auto) 36.4 % (20.0-45.0) Monocytes (%) (Auto) 6.3 % (1.0-10.0) Eosinophils (%) (Auto) 1.1 % (0.0-3.0) Basophils (%) (Auto) 1.0 % (0.0-2.0) Sodium Level 145 mEQ/L (135-145) Potassium Level 3.6 mEQ/L (3.4-4.9) Chloride Level 105 mEQ/L (98-107) Carbon Dioxide Level 25 mEQ/L (20-30) Anion Gap 15 (5-15) Blood Urea Nitrogen 4 mg/dL (7-23) L Creatinine 0.9 mg/dL (0.5-0.9) Estimat Glomerular Filtration Rate mL/min (>60) Glucose Level 87 mg/dL (74-106) Calcium Level 9.4 mg/dL (8.6-10.2) Phosphorus Level 3.5 mg/dL (2.5-4.8) Magnesium Level 2.2 mg/dL (1.7-2.5) Total Bilirubin 0.4 mg/dL (0.0-1.2) Gamma Glutamyl Transpeptidase 20 U/L (5-36) Aspartate Amino Transf (AST/SGOT) 39 U/L (5-40) Alanine Aminotransferase (ALT/SGPT) 28 U/L (3-33) Alkaline Phosphatase 49 U/L (35-104) Total Protein 7.0 g/dL (6.6-8.7) Albumin 3.9 g/dL (3.5-5.2) Globulin 3.1 g/dL Albumin/Globulin Ratio 1.2 (1.0-2.7) Current Medications Medications (Trade) Dose Ordered Sig/Daniella Route PRN Reason Start Time Stop Time Status Last Admin Dose Admin Acetaminophen (Tylenol) 650 mg Q4H PRN ORAL fever 08/09/16 22:00 09/08/16 21:59 Dextrose (Dextrose 50%) STAT PRN IV Hypoglycemia 08/09/16 22:20 09/08/16 22:19 Donepezil HCl (Aricept) 10 mg DAILY ORAL 08/10/16 09:00 09/09/16 08:59 08/12/16 09:41 Heparin Sodium (Porcine) (Heparin 5000 units/ml) 5,000 units EVERY 12 HOURS SUBQ 08/10/16 09:00 09/09/16 08:59 08/12/16 09:42 Levetiracetam (Keppra) 250 mg DAILY ORAL 08/10/16 09:00 09/09/16 08:59 08/12/16 09:41 Lorazepam (Ativan 2mg/ml 1ml) 1 mg Q2H PRN IV Agitation 08/09/16 22:00 08/16/16 21:59 08/12/16 03:30 Memantine (Namenda) 10 mg BID ORAL 08/10/16 09:00 09/09/16 08:59 08/12/16 09:41 Metronidazole (Flagyl) 500 mg Q8HR ORAL 08/11/16 16:30 08/18/16 16:29 08/12/16 13:40 Morphine Sulfate (Morphine Sulfate) 2 mg Q4H PRN IVP severe Pain (Pain Scale 7-10) 08/09/16 22:00 08/16/16 21:59 08/12/16 16:06 Nitroglycerin (Ntg) 0.4 mg Q5M X 3 DOSES PRN SL Prn Chest Pain 08/09/16 21:45 09/08/16 21:44 Ondansetron HCl (Zofran) 4 mg Q6H PRN IVP Nausea & Vomiting 08/10/16 22:00 09/09/16 21:59 Polyethylene Glycol (Miralax) 17 gm HSPRN PRN ORAL Constipation 08/09/16 22:00 09/08/16 21:59 Quetiapine Fumarate (SEROquel) 25 mg DAILY ORAL 08/10/16 09:00 09/09/16 08:59 08/12/16 09:41 Temazepam (Restoril) 15 mg HSPRN PRN ORAL Insomnia 08/09/16 22:00 08/16/16 21:59 Kasandra Strong M.D. Aug 12, 2016 17:37
--- NOTE | 2016-08-12 17:45 | Pulmonology Progress Note ---
Assessment/Plan Problems: (1) Sepsis (2) UTI (urinary tract infection) (3) Alzheimer's dementia (4) Hypertension Assessment/Plan improving continue antibiotics check cultures dvt prophylaxis monitor bp dc planning Subjective ROS Limited/Unobtainable: Yes Allergies: Coded Allergies: No Known Allergies (Unverified , 05/08/16) Objective Last 24 Hour Vital Signs Date Time Temp Pulse Resp B/P Pulse Ox O2 Delivery O2 Flow Rate FiO2 08/12/16 16:00 97.9 81 20 130/57 94 Room Air 08/12/16 11:57 97.2 64 20 105/60 97 Room Air 08/12/16 08:00 97.0 81 20 131/67 98 Room Air 08/12/16 06:00 97.7 67 18 108/66 98 Room Air 08/12/16 00:00 98.1 62 16 108/55 98 Room Air 08/11/16 20:00 97.7 69 14 107/61 97 Room Air 08/11/16 18:40 97.0 Intake and Output 08/11/16 08/12/16 19:00 07:00 Intake Total 675 ml 290 ml Balance 675 ml 290 ml Intake Oral 200 ml 290 ml IV Total 475 ml # Voids 2 4 # Bowel Movements 3 2 General Appearance: no acute distress HEENT: normocephalic, atraumatic, PERRL Respiratory/Chest: chest wall non-tender, lungs clear, normal breath sounds Breasts: no masses Cardiovascular: normal peripheral pulses, normal rate, regular rhythm Abdomen: normal bowel sounds, soft, non tender, no organomegaly Genitourinary: normal external genitalia Extremities: no cyanosis Skin: no rash Neurologic/Psychiatric: keeper helper II-XII grossly normal, abnormal CN, disoriented, depressed affect Microbiology Date/Time Source Procedure Growth Status 08/11/16 14:20 Stool Clostridium difficile Toxin Assay - Final Complete Laboratory Tests 08/12/16 05:55: White Blood Count 9.0, Red Blood Count 4.50, Hemoglobin 14.5, Hematocrit 45.8, Mean Corpuscular Volume 102H, Mean Corpuscular Hemoglobin 32.3H, Mean Corpuscular Hemoglobin Concent 31.7L, Red Cell Distribution Width 11.9, Platelet Count 230, Mean Platelet Volume 7.1, Neutrophils (%) (Auto) 55.3, Lymphocytes (%) (Auto) 36.4, Monocytes (%) (Auto) 6.3, Eosinophils (%) (Auto) 1.1, Basophils (%) (Auto) 1.0, Sodium Level 145, Potassium Level 3.6, Chloride Level 105, Carbon Dioxide Level 25, Anion Gap 15, Blood Urea Nitrogen 4L, Creatinine 0.9, Estimat Glomerular Filtration Rate , Glucose Level 87, Calcium Level 9.4, Phosphorus Level 3.5, Magnesium Level 2.2, Total Bilirubin 0.4, Gamma Glutamyl Transpeptidase 20, Aspartate Amino Transf (AST/SGOT) 39, Alanine Aminotransferase (ALT/SGPT) 28, Alkaline Phosphatase 49, Total Protein 7.0, Albumin 3.9, Globulin 3.1, Albumin/Globulin Ratio 1.2 Current Medications Medications (Trade) Dose Ordered Sig/Daniella Route PRN Reason Start Time Stop Time Status Last Admin Dose Admin Acetaminophen (Tylenol) 650 mg Q4H PRN ORAL fever 08/09/16 22:00 09/08/16 21:59 Dextrose (Dextrose 50%) STAT PRN IV Hypoglycemia 08/09/16 22:20 09/08/16 22:19 Donepezil HCl (Aricept) 10 mg DAILY ORAL 08/10/16 09:00 09/09/16 08:59 08/12/16 09:41 Heparin Sodium (Porcine) (Heparin 5000 units/ml) 5,000 units EVERY 12 HOURS SUBQ 08/10/16 09:00 09/09/16 08:59 08/12/16 09:42 Levetiracetam (Keppra) 250 mg DAILY ORAL 08/10/16 09:00 09/09/16 08:59 08/12/16 09:41 Lorazepam (Ativan 2mg/ml 1ml) 1 mg Q2H PRN IV Agitation 08/09/16 22:00 08/16/16 21:59 08/12/16 03:30 Memantine (Namenda) 10 mg BID ORAL 08/10/16 09:00 09/09/16 08:59 08/12/16 09:41 Metronidazole (Flagyl) 500 mg Q8HR ORAL 08/11/16 16:30 08/18/16 16:29 08/12/16 13:40 Morphine Sulfate (Morphine Sulfate) 2 mg Q4H PRN IVP severe Pain (Pain Scale 7-10) 08/09/16 22:00 08/16/16 21:59 08/12/16 16:06 Nitroglycerin (Ntg) 0.4 mg Q5M X 3 DOSES PRN SL Prn Chest Pain 08/09/16 21:45 09/08/16 21:44 Ondansetron HCl (Zofran) 4 mg Q6H PRN IVP Nausea & Vomiting 08/10/16 22:00 09/09/16 21:59 Polyethylene Glycol (Miralax) 17 gm HSPRN PRN ORAL Constipation 08/09/16 22:00 09/08/16 21:59 Quetiapine Fumarate (SEROquel) 25 mg DAILY ORAL 08/10/16 09:00 09/09/16 08:59 08/12/16 09:41 Temazepam (Restoril) 15 mg HSPRN PRN ORAL Insomnia 08/09/16 22:00 08/16/16 21:59 MEG SAMUELS Aug 12, 2016 17:45
--- NOTE | 2016-08-12 18:39 | Neurology Progress Note ---
Interim History Interim History Interim History Ms. Olmstead feels very well. She is alert and bright today. As per her sitter she is eating well. She is also walking well. She is cognitively impoverished. She is generally stronger. She is able to express her needs now. Review of Systems Neuro Review of Systems Benign. Objective Physical Exam Last Vital Signs Date Time Temp Pulse Resp B/P Pulse Ox O2 Delivery O2 Flow Rate FiO2 08/12/16 16:00 97.9 81 20 130/57 94 Room Air Laboratory Tests Test 08/12/16 05:55 White Blood Count 9.0 K/UL (4.8-10.8) Red Blood Count 4.50 M/UL (4.20-5.40) Hemoglobin 14.5 G/DL (12.0-16.0) Hematocrit 45.8 % (37.0-47.0) Mean Corpuscular Volume 102 FL (80-99) H Mean Corpuscular Hemoglobin 32.3 PG (27.0-31.0) H Mean Corpuscular Hemoglobin Concent 31.7 G/DL (32.0-36.0) L Red Cell Distribution Width 11.9 % (11.6-14.8) Platelet Count 230 K/UL (150-450) Mean Platelet Volume 7.1 FL (6.5-10.1) Neutrophils (%) (Auto) 55.3 % (45.0-75.0) Lymphocytes (%) (Auto) 36.4 % (20.0-45.0) Monocytes (%) (Auto) 6.3 % (1.0-10.0) Eosinophils (%) (Auto) 1.1 % (0.0-3.0) Basophils (%) (Auto) 1.0 % (0.0-2.0) Sodium Level 145 mEQ/L (135-145) Potassium Level 3.6 mEQ/L (3.4-4.9) Chloride Level 105 mEQ/L (98-107) Carbon Dioxide Level 25 mEQ/L (20-30) Anion Gap 15 (5-15) Blood Urea Nitrogen 4 mg/dL (7-23) L Creatinine 0.9 mg/dL (0.5-0.9) Estimat Glomerular Filtration Rate mL/min (>60) Glucose Level 87 mg/dL (74-106) Calcium Level 9.4 mg/dL (8.6-10.2) Phosphorus Level 3.5 mg/dL (2.5-4.8) Magnesium Level 2.2 mg/dL (1.7-2.5) Total Bilirubin 0.4 mg/dL (0.0-1.2) Gamma Glutamyl Transpeptidase 20 U/L (5-36) Aspartate Amino Transf (AST/SGOT) 39 U/L (5-40) Alanine Aminotransferase (ALT/SGPT) 28 U/L (3-33) Alkaline Phosphatase 49 U/L (35-104) Total Protein 7.0 g/dL (6.6-8.7) Albumin 3.9 g/dL (3.5-5.2) Globulin 3.1 g/dL Albumin/Globulin Ratio 1.2 (1.0-2.7) Neurologic Exam Objective PHYSICAL EXAMINATION: GENERAL: She is a well-developed, well-nourished, French lady, lying in bed in no acute distress. HEAD: Normocephalic and atraumatic. EENT: Examination benign. NECK: No neck rigidity was observed. NEUROLOGIC EXAMINATION: MENTAL STATUS EXAMINATION: She was awake and alert. She was oriented to self only. She had no idea of where she was or what the date was. She was unable to cooperate for further mental status tests. SPEECH: She had no dysarthria LANGUAGE: Unable to assess. CRANIAL NERVE EXAMINATION: II: She counted fingers accurately. III, IV & : The external ocular movements were full The pupils were 3 mm in diameter, equal, round, regular, reactive sluggishly to light. V: The facial sensations were normal and the temporales, masseters and pterygoids functioned well. VII: She had normal facial expressions and no facial asymmetry. VIII: She was able to hear well and had no nystagmus. IX: The palate moved symmetrically on phonation. X: She had no hoarseness of voice. XI: The sternocleidomastoids and trapezii did function. XII: The tongue was in midline. MOTOR SYSTEM: The tone was normal in all four extremities. Examination of muscle mass revealed no focal wasting. Examination of power revealed G 5/5 in all muscle groups. SENSORY EXAMINATION: She had intact sensations to pin prick and light touch. REFLEXES: 1+ and bilaterally symmetrical at the biceps, triceps, brachioradialis , and knees and 0 at both ankles. The plantar responses were flexor bilaterally. COORDINATION: She performed well on [id number] testing. STANCE & GAIT: She stood and walked well with contact guard. Impression/Recommendations Diagnostic Impression 1. Ms. Cherelle Olmstead is a 70-year-old, right-handed, French lady, who does have a past history of psychiatric illness and dementia, who was hospitalized for an altered mental state related to possible sepsis. 2. She looks and feels much better today. She is awake and alert. She is also able to stand and walk. As per her sitter she is eating well. 3. On neurological examination, at this time, she is awake and alert. She however is disoriented to place and time. She also demonstrates significant cognitive dysfunction. She does not demonstrate any focal or lateralizing findings. 4. Laboratory data thus far have revealed that her hemoglobin is 12.0 and her WBC count is 8.8. Her chemistry panel is relatively benign except for an anion gap of 17. Her glucose is elevated to 147. Her AST and ALT are also elevated. Her CK was also elevated to 496. Her B12, Folate and TSH are normal. 5. The patient's history and neurological examination are most compatible with an acute toxic encephalopathy, possibly related to her acute infectious process , superimposed on her underlying dementia. She is stabilizing neurologically. Recommendations 1. Continue present management. 2. Continue to correct the patient's fluid and electrolyte imbalance. 3. Continue to treat the patient's acute infectious process. 4. Increase activity as tolerated. Andi Almanzar M.D., M.S.P.ANDI ZHANG Aug 12, 2016 18:38
[2016-08-12 19:50] VITALS: BP 130/77
[2016-08-13] MEDS: LORazepam Inj 2mg/ml 1ml IV PRN ×4 (01:29→23:01)
[2016-08-13] MEDS: metroNIDAZOLE 500mg tab ORAL SCH ×3 (05:06→20:52)
[2016-08-13 06:26] LABS: BASOPHILS % (AUTO) 0.8 % (0.0-2.0); EOSINOPHILS % (AUTO) 0.7 % (0.0-3.0); LYMPHOCYTES % (AUTO) 27.5 % (20.0-45.0); MEAN CORPUSCULAR HEMOGLOBIN 33.5 PG (27.0-31.0); MEAN CORPUSCULAR HGB CONC 32.7 G/DL (32.0-36.0); MEAN CORPUSCULAR VOLUME 103 FL (80-99); MONOCYTES % (AUTO) 6.6 % (1.0-10.0); NEUTROPHILS % (AUTO) 64.4 % (45.0-75.0); PLATELET COUNT 195 K/UL (150-450); RED BLOOD COUNT 3.73 M/UL (4.20-5.40); RED CELL DISTRIBUTION WIDTH 11.9 % (11.6-14.8); WHITE BLOOD COUNT 8.2 K/UL (4.8-10.8)
[2016-08-13 06:32] LABS: ANION GAP 14 (5-15); CALCIUM 8.8 mg/dL (8.6-10.2); CARBON DIOXIDE 26 mEQ/L (20-30); CHLORIDE 104 mEQ/L (98-107); CREATININE 0.9 mg/dL (0.5-0.9); HEMOLYSIS 4; POTASSIUM 3.4 mEQ/L (3.4-4.9); SODIUM 144 mEQ/L (135-145)
[2016-08-13 07:40] LABS: FOLIC ACID > 20.0 ng/mL (3.1-17.5)
[2016-08-13 08:25] VITALS: BP 95/56
--- NOTE | 2016-08-13 08:37 | Cardiology Report ---
APPROVED REPORT EKG Measurement Heart [id number] Normal sinus rhythm Normal ECG
[2016-08-13] MEDS: Donepezil 10mg tab ORAL SCH (08:42)
[2016-08-13] MEDS: Memantine 10mg tab ORAL SCH ×2 (08:42→18:07)
[2016-08-13] MEDS: Heparin 5000 units/ml inj SUBQ SCH ×2 (08:46→20:52)
[2016-08-13] MEDS: Morphine Sulfate 2mg/ml Inj IVP PRN (09:18)
--- NOTE | 2016-08-13 10:25 | GI Progress Note ---
Assessment/Plan Problems: (1) Enteritis ICD Codes: K52.9 - Noninfective gastroenteritis and colitis, unspecified SNOMED: 24726763 (2) Alzheimer's dementia ICD Codes: G30.9 - Alzheimer's disease, unspecified SNOMED: 91751089 (3) Altered level of consciousness ICD Codes: R40.4 - Transient alteration of awareness SNOMED: 7153859 (4) Gastric wall thickening ICD Codes: K31.89 - Other diseases of stomach and duodenum SNOMED: 76605532 (5) Dilated bowel SNOMED: 03292245 Status: stable Status Narrative Discussed with Dr. Newsome. Assessment/Plan - N/V - improved - abnormal LFT - improved >> WNL today - HTN - OBS - Anxiety - reports of bloody stool per RN Recommendations - PO diet as tolerated - follow LFT - Await formal CT reading - hep panel pending - cdiff negative - monitor H&H, stable The patient was seen and examined at bedside and all new and available data was reviewed in the patients chart. I agree with the above findings, impression and plan. (Patient seen earlier today. Signature stamp does not reflect patient encounter time.). -Bart Newsome MD Subjective Subjective limited Objective Last 24 Hour Vital Signs Date Time Temp Pulse Resp B/P Pulse Ox O2 Delivery O2 Flow Rate FiO2 08/13/16 09:48 97.9 08/13/16 08:25 97.9 80 18 95/56 99 Room Air 08/12/16 19:50 98.1 91 20 130/77 99 Room Air 08/12/16 16:00 97.9 81 20 130/57 94 Room Air 08/12/16 11:57 97.2 64 20 105/60 97 Room Air Intake and Output 08/12/16 08/13/16 19:00 07:00 Intake Total 1080 ml 360 ml Balance 1080 ml 360 ml Intake Oral 1080 ml 360 ml # Voids 2 # Bowel Movements 2 Laboratory Tests Test 08/13/16 05:20 White Blood Count 8.2 K/UL (4.8-10.8) Red Blood Count 3.73 M/UL (4.20-5.40) L Hemoglobin 12.5 G/DL (12.0-16.0) Hematocrit 38.2 % (37.0-47.0) Mean Corpuscular Volume 103 FL (80-99) H Mean Corpuscular Hemoglobin 33.5 PG (27.0-31.0) H Mean Corpuscular Hemoglobin Concent 32.7 G/DL (32.0-36.0) Red Cell Distribution Width 11.9 % (11.6-14.8) Platelet Count 195 K/UL (150-450) Mean Platelet Volume 7.0 FL (6.5-10.1) Neutrophils (%) (Auto) 64.4 % (45.0-75.0) Lymphocytes (%) (Auto) 27.5 % (20.0-45.0) Monocytes (%) (Auto) 6.6 % (1.0-10.0) Eosinophils (%) (Auto) 0.7 % (0.0-3.0) Basophils (%) (Auto) 0.8 % (0.0-2.0) Sodium Level 144 mEQ/L (135-145) Potassium Level 3.4 mEQ/L (3.4-4.9) Chloride Level 104 mEQ/L (98-107) Carbon Dioxide Level 26 mEQ/L (20-30) Anion Gap 14 (5-15) Blood Urea Nitrogen 6 mg/dL (7-23) L Creatinine 0.9 mg/dL (0.5-0.9) Estimat Glomerular Filtration Rate mL/min (>60) Glucose Level 98 mg/dL (74-106) Calcium Level 8.8 mg/dL (8.6-10.2) Height (Feet): 5 Height (Inches): 0.00 Weight (Pounds): 111 General Appearance: no apparent distress, alert Cardiovascular: normal rate Respiratory/Chest: normal breath sounds Abdominal Exam: normal bowel sounds, non tender, soft Extremities: normal range of motion Objective report of bloody stools by Marilee Wilder NNadira Aug 13, 2016 10:25 BART NEWSOME Aug 13, 2016 12:18
[2016-08-13 11:13] VITALS: BP 130/81
--- NOTE | 2016-08-13 12:45 | Neurology Progress Note ---
Interim History Interim History Interim History Ms. Olmstead feels very well. She is alert and bright today. As per her daughter she has had a dementia for 10 years and it has been severe for the last 5 years. She is walking well. She is cognitively impoverished. She is generally stronger. She is able to express her needs now. Review of Systems Neuro Review of Systems Benign. Objective Physical Exam Last Vital Signs Date Time Temp Pulse Resp B/P Pulse Ox O2 Delivery O2 Flow Rate FiO2 08/13/16 11:13 97.0 95 18 130/81 99 Room Air Laboratory Tests Test 08/13/16 05:20 White Blood Count 8.2 K/UL (4.8-10.8) Red Blood Count 3.73 M/UL (4.20-5.40) L Hemoglobin 12.5 G/DL (12.0-16.0) Hematocrit 38.2 % (37.0-47.0) Mean Corpuscular Volume 103 FL (80-99) H Mean Corpuscular Hemoglobin 33.5 PG (27.0-31.0) H Mean Corpuscular Hemoglobin Concent 32.7 G/DL (32.0-36.0) Red Cell Distribution Width 11.9 % (11.6-14.8) Platelet Count 195 K/UL (150-450) Mean Platelet Volume 7.0 FL (6.5-10.1) Neutrophils (%) (Auto) 64.4 % (45.0-75.0) Lymphocytes (%) (Auto) 27.5 % (20.0-45.0) Monocytes (%) (Auto) 6.6 % (1.0-10.0) Eosinophils (%) (Auto) 0.7 % (0.0-3.0) Basophils (%) (Auto) 0.8 % (0.0-2.0) Sodium Level 144 mEQ/L (135-145) Potassium Level 3.4 mEQ/L (3.4-4.9) Chloride Level 104 mEQ/L (98-107) Carbon Dioxide Level 26 mEQ/L (20-30) Anion Gap 14 (5-15) Blood Urea Nitrogen 6 mg/dL (7-23) L Creatinine 0.9 mg/dL (0.5-0.9) Estimat Glomerular Filtration Rate mL/min (>60) Glucose Level 98 mg/dL (74-106) Calcium Level 8.8 mg/dL (8.6-10.2) Neurologic Exam Objective PHYSICAL EXAMINATION: GENERAL: She is a well-developed, well-nourished, Urdu lady, lying in bed in no acute distress. HEAD: Normocephalic and atraumatic. EENT: Examination benign. NECK: No neck rigidity was observed. NEUROLOGIC EXAMINATION: MENTAL STATUS EXAMINATION: She was awake and alert. She was oriented to self only. She had no idea of where she was or what the date was. She was unable to cooperate for further mental status tests. SPEECH: She had no dysarthria LANGUAGE: Normal in Urdu as per daughter.. CRANIAL NERVE EXAMINATION: II: She counted fingers accurately. III, IV & : The external ocular movements were full The pupils were 3 mm in diameter, equal, round, regular, reactive sluggishly to light. V: The facial sensations were normal and the temporales, masseters and pterygoids functioned well. VII: She had normal facial expressions and no facial asymmetry. VIII: She was able to hear well and had no nystagmus. IX: The palate moved symmetrically on phonation. X: She had no hoarseness of voice. XI: The sternocleidomastoids and trapezii did function. XII: The tongue was in midline. MOTOR SYSTEM: The tone was normal in all four extremities. Examination of muscle mass revealed no focal wasting. Examination of power revealed G 5/5 in all muscle groups. SENSORY EXAMINATION: She had intact sensations to pin prick and light touch. REFLEXES: 1+ and bilaterally symmetrical at the biceps, triceps, brachioradialis , and knees and 0 at both ankles. The plantar responses were flexor bilaterally. COORDINATION: She performed well on [id number] testing. STANCE & GAIT: She stood and walked well with contact guard. Impression/Recommendations Diagnostic Impression 1. Ms. Cherelle Olmstead is a 70-year-old, right-handed, Urdu lady, who does have a past history of psychiatric illness and dementia, who was hospitalized for an altered mental state related to possible sepsis. 2. She looks and feels much better today. She is awake and alert. She is also able to stand and walk. .As per her daughter her cognitive function is at her baseline. 3. On neurological examination, at this time, she is awake and alert. She however is disoriented to place and time. She also demonstrates significant cognitive dysfunction. She does not demonstrate any focal or lateralizing findings. 4. Laboratory data thus far have revealed that her hemoglobin is 12.0 and her WBC count is 8.8. Her chemistry panel is relatively benign except for an anion gap of 17. Her glucose is elevated to 147. Her AST and ALT are also elevated. Her CK was also elevated to 496. Her B12, Folate and TSH are normal. 5. The patient's history and neurological examination are most compatible with an acute toxic encephalopathy, possibly related to her acute infectious process , superimposed on her underlying dementia. She is stabilizing neurologically. Recommendations 1. Continue present management. 2. Continue to correct the patient's fluid and electrolyte imbalance. 3. Continue to treat the patient's acute infectious process. 4. Increase activity as tolerated. Andi Almanzar M.D., M.S.P.H. ANDI ALMANZAR Aug 13, 2016 12:45
--- NOTE | 2016-08-13 12:53 | General Progress Note ---
Assessment/Plan Status: stable, unchanged Assessment/Plan HTN controlled- Low K replaced PH - Abdominal pain with vomiting secondary to acute pancreatitis. - Alzheimer's dementia. - Possible enteritis. Plan: Watch BP on current treatment- Watch electrolytes in view of vomiting continue per GI- check UA: Negative Subjective ROS Limited/Unobtainable: Yes Allergies: Coded Allergies: No Known Allergies (Unverified , 05/08/16) Objective Last 24 Hour Vital Signs Date Time Temp Pulse Resp B/P Pulse Ox O2 Delivery O2 Flow Rate FiO2 08/13/16 11:13 97.0 95 18 130/81 99 Room Air 08/13/16 09:48 97.9 08/13/16 08:25 97.9 80 18 95/56 99 Room Air 08/12/16 19:50 98.1 91 20 130/77 99 Room Air 08/12/16 16:00 97.9 81 20 130/57 94 Room Air Intake and Output 08/12/16 08/13/16 19:00 07:00 Intake Total 1080 ml 360 ml Balance 1080 ml 360 ml Intake Oral 1080 ml 360 ml # Voids 2 # Bowel Movements 2 Laboratory Tests 08/13/16 05:20: White Blood Count 8.2, Red Blood Count 3.73L, Hemoglobin 12.5, Hematocrit 38.2, Mean Corpuscular Volume 103H, Mean Corpuscular Hemoglobin 33.5H, Mean Corpuscular Hemoglobin Concent 32.7, Red Cell Distribution Width 11.9, Platelet Count 195, Mean Platelet Volume 7.0, Neutrophils (%) (Auto) 64.4, Lymphocytes (% ) (Auto) 27.5, Monocytes (%) (Auto) 6.6, Eosinophils (%) (Auto) 0.7, Basophils ( %) (Auto) 0.8, Sodium Level 144, Potassium Level 3.4, Chloride Level 104, Carbon Dioxide Level 26, Anion Gap 14, Blood Urea Nitrogen 6L, Creatinine 0.9, Estimat Glomerular Filtration Rate , Glucose Level 98, Calcium Level 8.8 Height (Feet): 5 Height (Inches): 0.00 Weight (Pounds): 111 General Appearance: no apparent distress Objective PE not changed ANDRE MAXWELL Aug 13, 2016 12:53
--- NOTE | 2016-08-13 14:43 | General Progress Note ---
Assessment/Plan Problem List: (1) Altered level of consciousness ICD Codes: R40.4 - Transient alteration of awareness SNOMED: 3410260 (2) Sepsis ICD Codes: A41.9 - Sepsis, unspecified organism SNOMED: 66947524 (3) UTI (urinary tract infection) ICD Codes: N39.0 - Urinary tract infection, site not specified SNOMED: 36806075 (4) Enteritis ICD Codes: K52.9 - Noninfective gastroenteritis and colitis, unspecified SNOMED: 81467602 Status: progressing Assessment/Plan afebrile vitals stable sepsis abx per id Subjective ROS Limited/Unobtainable: Yes Constitutional: Reports: no symptoms Allergies: Coded Allergies: No Known Allergies (Unverified , 05/08/16) Objective Last 24 Hour Vital Signs Date Time Temp Pulse Resp B/P Pulse Ox O2 Delivery O2 Flow Rate FiO2 08/13/16 11:13 97.0 95 18 130/81 99 Room Air 08/13/16 09:48 97.9 08/13/16 08:25 97.9 80 18 95/56 99 Room Air 08/12/16 19:50 98.1 91 20 130/77 99 Room Air 08/12/16 16:00 97.9 81 20 130/57 94 Room Air Intake and Output 08/12/16 08/13/16 19:00 07:00 Intake Total 1080 ml 360 ml Balance 1080 ml 360 ml Intake Oral 1080 ml 360 ml # Voids 2 # Bowel Movements 2 Laboratory Tests 08/13/16 05:20: White Blood Count 8.2, Red Blood Count 3.73L, Hemoglobin 12.5, Hematocrit 38.2, Mean Corpuscular Volume 103H, Mean Corpuscular Hemoglobin 33.5H, Mean Corpuscular Hemoglobin Concent 32.7, Red Cell Distribution Width 11.9, Platelet Count 195, Mean Platelet Volume 7.0, Neutrophils (%) (Auto) 64.4, Lymphocytes (% ) (Auto) 27.5, Monocytes (%) (Auto) 6.6, Eosinophils (%) (Auto) 0.7, Basophils ( %) (Auto) 0.8, Sodium Level 144, Potassium Level 3.4, Chloride Level 104, Carbon Dioxide Level 26, Anion Gap 14, Blood Urea Nitrogen 6L, Creatinine 0.9, Estimat Glomerular Filtration Rate , Glucose Level 98, Calcium Level 8.8 Height (Feet): 5 Height (Inches): 0.00 Weight (Pounds): 111 EENT: PERRL/EOMI Cardiovascular: normal rate Respiratory/Chest: lungs clear Abdomen: soft Anna Bean MD Aug 13, 2016 14:43
[2016-08-13 16:00] VITALS: BP 110/58
--- NOTE | 2016-08-13 17:02 | Infectious Diseases Prog Note ---
Assessment/Plan Problems: (1) Enteritis Assessment & Plan: stool for culture is pending, and C diff is negative , continue flagyl empirically and observe (2) Sepsis Assessment & Plan: await blood culture (3) Alzheimer's dementia Assessment & Plan: continue supportive care and meds (4) Hypertension Assessment & Plan: continue meds to keep SBP< 140 (5) Altered level of consciousness Assessment & Plan: doubt due to sepsis, D/C zosyn, neurology is following (6) Melena Assessment & Plan: recommend GI eval, monitor H/H transfuse as needed Subjective ROS Limited/Unobtainable: Yes Gastrointestinal/Abdominal: Reports: blood in stool Allergies: Coded Allergies: No Known Allergies (Unverified , 05/08/16) Subjective she is demented, lying in bed, not in distress , afebrile.had melena today as per patient report Objective Vital Signs Last 24 Hour Vital Signs Date Time Temp Pulse Resp B/P Pulse Ox O2 Delivery O2 Flow Rate FiO2 08/13/16 16:00 96.8 69 16 110/58 97 Room Air 08/13/16 11:13 97.0 95 18 130/81 99 Room Air 08/13/16 09:48 97.9 08/13/16 08:25 97.9 80 18 95/56 99 Room Air 08/12/16 19:50 98.1 91 20 130/77 99 Room Air Height (Feet): 5 Height (Inches): 0.00 Weight (Pounds): 111 General Appearance: WD/WN, no acute distress HEENT: normocephalic, atraumatic, anicteric, mucous membranes moist Respiratory/Chest: chest wall non-tender, lungs clear, normal breath sounds, no respiratory distress, no accessory muscle use Cardiovascular: normal peripheral pulses, normal rate, regular rhythm, no gallop/murmur Abdomen: normal bowel sounds, soft, non tender, no organomegaly, non distended , no mass Extremities: no cyanosis, no clubbing Skin: no rash, no lesions, no ulcers Microbiology Date/Time Source Procedure Growth Status 08/11/16 14:20 Stool Clostridium difficile Toxin Assay - Final Complete Laboratory Tests Test 08/13/16 05:20 White Blood Count 8.2 K/UL (4.8-10.8) Red Blood Count 3.73 M/UL (4.20-5.40) L Hemoglobin 12.5 G/DL (12.0-16.0) Hematocrit 38.2 % (37.0-47.0) Mean Corpuscular Volume 103 FL (80-99) H Mean Corpuscular Hemoglobin 33.5 PG (27.0-31.0) H Mean Corpuscular Hemoglobin Concent 32.7 G/DL (32.0-36.0) Red Cell Distribution Width 11.9 % (11.6-14.8) Platelet Count 195 K/UL (150-450) Mean Platelet Volume 7.0 FL (6.5-10.1) Neutrophils (%) (Auto) 64.4 % (45.0-75.0) Lymphocytes (%) (Auto) 27.5 % (20.0-45.0) Monocytes (%) (Auto) 6.6 % (1.0-10.0) Eosinophils (%) (Auto) 0.7 % (0.0-3.0) Basophils (%) (Auto) 0.8 % (0.0-2.0) Sodium Level 144 mEQ/L (135-145) Potassium Level 3.4 mEQ/L (3.4-4.9) Chloride Level 104 mEQ/L (98-107) Carbon Dioxide Level 26 mEQ/L (20-30) Anion Gap 14 (5-15) Blood Urea Nitrogen 6 mg/dL (7-23) L Creatinine 0.9 mg/dL (0.5-0.9) Estimat Glomerular Filtration Rate mL/min (>60) Glucose Level 98 mg/dL (74-106) Calcium Level 8.8 mg/dL (8.6-10.2) Current Medications Medications (Trade) Dose Ordered Sig/Daniella Route PRN Reason Start Time Stop Time Status Last Admin Dose Admin Acetaminophen (Tylenol) 650 mg Q4H PRN ORAL fever 08/09/16 22:00 09/08/16 21:59 Dextrose (Dextrose 50%) STAT PRN IV Hypoglycemia 08/09/16 22:20 09/08/16 22:19 Donepezil HCl (Aricept) 10 mg DAILY ORAL 08/10/16 09:00 09/09/16 08:59 08/13/16 08:42 Heparin Sodium (Porcine) (Heparin 5000 units/ml) 5,000 units EVERY 12 HOURS SUBQ 08/10/16 09:00 09/09/16 08:59 08/13/16 08:46 Levetiracetam (Keppra) 250 mg DAILY ORAL 08/10/16 09:00 09/09/16 08:59 08/13/16 08:42 Lorazepam (Ativan 2mg/ml 1ml) 1 mg Q2H PRN IV Agitation 08/09/16 22:00 08/16/16 21:59 08/13/16 11:14 Memantine (Namenda) 10 mg BID ORAL 08/10/16 09:00 09/09/16 08:59 08/13/16 08:42 Metronidazole (Flagyl) 500 mg Q8HR ORAL 08/11/16 16:30 08/18/16 16:29 08/13/16 05:06 Morphine Sulfate (Morphine Sulfate) 2 mg Q4H PRN IVP severe Pain (Pain Scale 7-10) 08/09/16 22:00 08/16/16 21:59 08/13/16 09:18 Nitroglycerin (Ntg) 0.4 mg Q5M X 3 DOSES PRN SL Prn Chest Pain 08/09/16 21:45 09/08/16 21:44 Ondansetron HCl (Zofran) 4 mg Q6H PRN IVP Nausea & Vomiting 08/10/16 22:00 09/09/16 21:59 Polyethylene Glycol (Miralax) 17 gm HSPRN PRN ORAL Constipation 08/09/16 22:00 09/08/16 21:59 Quetiapine Fumarate (SEROquel) 25 mg DAILY ORAL 08/10/16 09:00 09/09/16 08:59 08/13/16 08:42 Temazepam (Restoril) 15 mg HSPRN PRN ORAL Insomnia 08/09/16 22:00 08/16/16 21:59 Kasandra Strong M.D. Aug 13, 2016 17:02
--- NOTE | 2016-08-13 18:16 | Pulmonology Progress Note ---
Assessment/Plan Problems: (1) Sepsis (2) UTI (urinary tract infection) (3) Alzheimer's dementia (4) Hypertension Assessment/Plan improving continue antibiotics check cultures dvt prophylaxis monitor bp dc planning Subjective ROS Limited/Unobtainable: Yes Constitutional: Reports: fatigue Allergies: Coded Allergies: No Known Allergies (Unverified , 05/08/16) Objective Last 24 Hour Vital Signs Date Time Temp Pulse Resp B/P Pulse Ox O2 Delivery O2 Flow Rate FiO2 08/13/16 16:00 96.8 69 16 110/58 97 Room Air 08/13/16 11:13 97.0 95 18 130/81 99 Room Air 08/13/16 09:48 97.9 08/13/16 08:25 97.9 80 18 95/56 99 Room Air 08/12/16 19:50 98.1 91 20 130/77 99 Room Air Intake and Output 08/12/16 08/13/16 19:00 07:00 Intake Total 1080 ml 360 ml Balance 1080 ml 360 ml Intake Oral 1080 ml 360 ml # Voids 2 # Bowel Movements 2 General Appearance: no acute distress HEENT: normocephalic, atraumatic, PERRL Respiratory/Chest: chest wall non-tender, lungs clear, normal breath sounds Breasts: no masses Cardiovascular: normal peripheral pulses, normal rate, regular rhythm Abdomen: normal bowel sounds, soft, non tender, no organomegaly Genitourinary: normal external genitalia Extremities: no cyanosis Skin: no rash, no lesions Neurologic/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: 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 grossly normal, disoriented, depressed affect Microbiology Date/Time Source Procedure Growth Status 08/11/16 14:20 Stool Clostridium difficile Toxin Assay - Final Complete Laboratory Tests 08/13/16 05:20: White Blood Count 8.2, Red Blood Count 3.73L, Hemoglobin 12.5, Hematocrit 38.2, Mean Corpuscular Volume 103H, Mean Corpuscular Hemoglobin 33.5H, Mean Corpuscular Hemoglobin Concent 32.7, Red Cell Distribution Width 11.9, Platelet Count 195, Mean Platelet Volume 7.0, Neutrophils (%) (Auto) 64.4, Lymphocytes (% ) (Auto) 27.5, Monocytes (%) (Auto) 6.6, Eosinophils (%) (Auto) 0.7, Basophils ( %) (Auto) 0.8, Sodium Level 144, Potassium Level 3.4, Chloride Level 104, Carbon Dioxide Level 26, Anion Gap 14, Blood Urea Nitrogen 6L, Creatinine 0.9, Estimat Glomerular Filtration Rate , Glucose Level 98, Calcium Level 8.8 Current Medications Medications (Trade) Dose Ordered Sig/Daniella Route PRN Reason Start Time Stop Time Status Last Admin Dose Admin Acetaminophen (Tylenol) 650 mg Q4H PRN ORAL fever 08/09/16 22:00 09/08/16 21:59 Dextrose (Dextrose 50%) STAT PRN IV Hypoglycemia 08/09/16 22:20 09/08/16 22:19 Donepezil HCl (Aricept) 10 mg DAILY ORAL 08/10/16 09:00 09/09/16 08:59 08/13/16 08:42 Heparin Sodium (Porcine) (Heparin 5000 units/ml) 5,000 units EVERY 12 HOURS SUBQ 08/10/16 09:00 09/09/16 08:59 08/13/16 08:46 Levetiracetam (Keppra) 250 mg DAILY ORAL 08/10/16 09:00 09/09/16 08:59 08/13/16 08:42 Lorazepam (Ativan 2mg/ml 1ml) 1 mg Q2H PRN IV Agitation 08/09/16 22:00 08/16/16 21:59 08/13/16 11:14 Memantine (Namenda) 10 mg BID ORAL 08/10/16 09:00 09/09/16 08:59 08/13/16 18:07 Metronidazole (Flagyl) 500 mg Q8HR ORAL 08/11/16 16:30 08/18/16 16:29 08/13/16 05:06 Morphine Sulfate (Morphine Sulfate) 2 mg Q4H PRN IVP severe Pain (Pain Scale 7-10) 08/09/16 22:00 08/16/16 21:59 08/13/16 09:18 Nitroglycerin (Ntg) 0.4 mg Q5M X 3 DOSES PRN SL Prn Chest Pain 08/09/16 21:45 09/08/16 21:44 Ondansetron HCl (Zofran) 4 mg Q6H PRN IVP Nausea & Vomiting 08/10/16 22:00 09/09/16 21:59 Polyethylene Glycol (Miralax) 17 gm HSPRN PRN ORAL Constipation 08/09/16 22:00 09/08/16 21:59 Quetiapine Fumarate (SEROquel) 25 mg DAILY ORAL 08/10/16 09:00 09/09/16 08:59 08/13/16 08:42 Temazepam (Restoril) 15 mg HSPRN PRN ORAL Insomnia 08/09/16 22:00 08/16/16 21:59 MEG SAMUELS Aug 13, 2016 18:16
[2016-08-13 20:00] VITALS: BP 125/66
[2016-08-14] VITALS: BP 106/58
[2016-08-14 04:00] VITALS: BP 132/82
[2016-08-14] MEDS: metroNIDAZOLE 500mg tab ORAL SCH ×4 (06:00→21:30)
[2016-08-14 07:14] LABS: BASOPHILS % (AUTO) 0.8 % (0.0-2.0); EOSINOPHILS % (AUTO) 0.8 % (0.0-3.0); LYMPHOCYTES % (AUTO) 22.9 % (20.0-45.0); MEAN CORPUSCULAR HEMOGLOBIN 34.7 PG (27.0-31.0); MEAN CORPUSCULAR VOLUME 102 FL (80-99); MEAN PLATELET VOLUME 7.3 FL (6.5-10.1); MONOCYTES % (AUTO) 6.6 % (1.0-10.0); NEUTROPHILS % (AUTO) 68.9 % (45.0-75.0); PLATELET COUNT 182 K/UL (150-450); RED BLOOD COUNT 3.63 M/UL (4.20-5.40); RED CELL DISTRIBUTION WIDTH 11.8 % (11.6-14.8); WHITE BLOOD COUNT 9.6 K/UL (4.8-10.8)
[2016-08-14 07:32] LABS: ANION GAP 13 (5-15); CALCIUM 8.8 mg/dL (8.6-10.2); CARBON DIOXIDE 25 mEQ/L (20-30); CHLORIDE 104 mEQ/L (98-107); CREATININE 0.8 mg/dL (0.5-0.9); HEMOLYSIS 6; POTASSIUM 3.4 mEQ/L (3.4-4.9); SODIUM 142 mEQ/L (135-145)
[2016-08-14 07:38] VITALS: BP 132/70
[2016-08-14] MEDS: Donepezil 10mg tab ORAL SCH (08:58)
[2016-08-14] MEDS: Memantine 10mg tab ORAL SCH ×2 (08:58→17:39)
[2016-08-14] MEDS: Heparin 5000 units/ml inj SUBQ SCH ×2 (09:02→21:00)
--- NOTE | 2016-08-14 10:04 | General Progress Note ---
Assessment/Plan Status: stable - from renal stand point Assessment/Plan HTN controlled- Low K replaced PH - Abdominal pain with vomiting secondary to acute pancreatitis. - Alzheimer's dementia. - Possible enteritis. Plan: Watch BP on current treatment- Watch electrolytes in view of vomiting continue per GI- check UA: Negative Subjective ROS Limited/Unobtainable: No Allergies: Coded Allergies: No Known Allergies (Unverified , 05/08/16) Objective Last 24 Hour Vital Signs Date Time Temp Pulse Resp B/P Pulse Ox O2 Delivery O2 Flow Rate FiO2 08/14/16 07:38 96.4 80 20 132/70 98 Room Air 08/14/16 04:00 97.0 85 18 132/82 98 Room Air 08/14/16 00:00 97.2 79 16 106/58 98 Room Air 08/13/16 20:00 98.2 77 16 125/66 96 Room Air 08/13/16 16:00 96.8 69 16 110/58 97 Room Air 08/13/16 11:13 97.0 95 18 130/81 99 Room Air Intake and Output 08/13/16 08/14/16 19:00 07:00 Intake Total 450 ml 360 ml Output Total 1 ml Balance 450 ml 359 ml Intake Oral 450 ml 360 ml Output Urine Total 1 ml # Voids 1 3 # Bowel Movements 1 1 Laboratory Tests 08/14/16 05:55: White Blood Count 9.6, Red Blood Count 3.63L, Hemoglobin 12.6, Hematocrit 37.0, Mean Corpuscular Volume 102H, Mean Corpuscular Hemoglobin 34.7H, Mean Corpuscular Hemoglobin Concent 34.0, Red Cell Distribution Width 11.8, Platelet Count 182, Mean Platelet Volume 7.3, Neutrophils (%) (Auto) 68.9, Lymphocytes (% ) (Auto) 22.9, Monocytes (%) (Auto) 6.6, Eosinophils (%) (Auto) 0.8, Basophils ( %) (Auto) 0.8, Sodium Level 142, Potassium Level 3.4, Chloride Level 104, Carbon Dioxide Level 25, Anion Gap 13, Blood Urea Nitrogen 5L, Creatinine 0.8, Estimat Glomerular Filtration Rate , Glucose Level 94, Calcium Level 8.8 Height (Feet): 5 Height (Inches): 0.00 Weight (Pounds): 111 General Appearance: no apparent distress Objective PE not changed FOULADIAN,ANDRE Aug 14, 2016 10:04
[2016-08-14 11:26] VITALS: BP 108/67
--- NOTE | 2016-08-14 11:27 | GI Progress Note ---
Assessment/Plan Problems: (1) Enteritis ICD Codes: K52.9 - Noninfective gastroenteritis and colitis, unspecified SNOMED: 15597964 (2) Alzheimer's dementia ICD Codes: G30.9 - Alzheimer's disease, unspecified SNOMED: 62205286 (3) Altered level of consciousness ICD Codes: R40.4 - Transient alteration of awareness SNOMED: 8456769 (4) Gastric wall thickening ICD Codes: K31.89 - Other diseases of stomach and duodenum SNOMED: 20640095 (5) Dilated bowel SNOMED: 81830088 Status: stable Status Narrative Discussed with Dr. Newsome. Assessment/Plan - N/V - resolved - abnormal LFT - improved >> WNL today - HTN - OBS - Anxiety - reports of bloody stool per RN Recommendations - dc planning - adv to regular diet - follow LFT - Await formal CT reading - hep panel negative - cdiff negative - monitor H&H, stable Subjective Subjective limited Objective Last 24 Hour Vital Signs Date Time Temp Pulse Resp B/P Pulse Ox O2 Delivery O2 Flow Rate FiO2 08/14/16 07:38 96.4 80 20 132/70 98 Room Air 08/14/16 04:00 97.0 85 18 132/82 98 Room Air 08/14/16 00:00 97.2 79 16 106/58 98 Room Air 08/13/16 20:00 98.2 77 16 125/66 96 Room Air 08/13/16 16:00 96.8 69 16 110/58 97 Room Air Intake and Output 08/13/16 08/14/16 19:00 07:00 Intake Total 450 ml 360 ml Output Total 1 ml Balance 450 ml 359 ml Intake Oral 450 ml 360 ml Output Urine Total 1 ml # Voids 1 3 # Bowel Movements 1 1 Laboratory Tests Test 08/14/16 05:55 White Blood Count 9.6 K/UL (4.8-10.8) Red Blood Count 3.63 M/UL (4.20-5.40) L Hemoglobin 12.6 G/DL (12.0-16.0) Hematocrit 37.0 % (37.0-47.0) Mean Corpuscular Volume 102 FL (80-99) H Mean Corpuscular Hemoglobin 34.7 PG (27.0-31.0) H Mean Corpuscular Hemoglobin Concent 34.0 G/DL (32.0-36.0) Red Cell Distribution Width 11.8 % (11.6-14.8) Platelet Count 182 K/UL (150-450) Mean Platelet Volume 7.3 FL (6.5-10.1) Neutrophils (%) (Auto) 68.9 % (45.0-75.0) Lymphocytes (%) (Auto) 22.9 % (20.0-45.0) Monocytes (%) (Auto) 6.6 % (1.0-10.0) Eosinophils (%) (Auto) 0.8 % (0.0-3.0) Basophils (%) (Auto) 0.8 % (0.0-2.0) Sodium Level 142 mEQ/L (135-145) Potassium Level 3.4 mEQ/L (3.4-4.9) Chloride Level 104 mEQ/L (98-107) Carbon Dioxide Level 25 mEQ/L (20-30) Anion Gap 13 (5-15) Blood Urea Nitrogen 5 mg/dL (7-23) L Creatinine 0.8 mg/dL (0.5-0.9) Estimat Glomerular Filtration Rate mL/min (>60) Glucose Level 94 mg/dL (74-106) Calcium Level 8.8 mg/dL (8.6-10.2) Height (Feet): 5 Height (Inches): 0.00 Weight (Pounds): 111 General Appearance: alert, confused Cardiovascular: normal rate Respiratory/Chest: normal breath sounds, no respiratory distress Abdominal Exam: soft Extremities: normal range of motion Marilee Salcedo N.P. Aug 14, 2016 11:27
--- NOTE | 2016-08-14 12:39 | Neurology Progress Note ---
Interim History Interim History Interim History Ms. Olmsteda feels very well. She is alert and bright today. She was up osmin chair enjoying her breakfast. She is cognitively impoverished. She is generally strong.. She is able to express her needs now in Maltese. Review of Systems Neuro Review of Systems Benign. Objective Physical Exam Last Vital Signs Date Time Temp Pulse Resp B/P Pulse Ox O2 Delivery O2 Flow Rate FiO2 08/14/16 11:26 96.6 83 20 108/67 100 Room Air Laboratory Tests Test 08/14/16 05:55 White Blood Count 9.6 K/UL (4.8-10.8) Red Blood Count 3.63 M/UL (4.20-5.40) L Hemoglobin 12.6 G/DL (12.0-16.0) Hematocrit 37.0 % (37.0-47.0) Mean Corpuscular Volume 102 FL (80-99) H Mean Corpuscular Hemoglobin 34.7 PG (27.0-31.0) H Mean Corpuscular Hemoglobin Concent 34.0 G/DL (32.0-36.0) Red Cell Distribution Width 11.8 % (11.6-14.8) Platelet Count 182 K/UL (150-450) Mean Platelet Volume 7.3 FL (6.5-10.1) Neutrophils (%) (Auto) 68.9 % (45.0-75.0) Lymphocytes (%) (Auto) 22.9 % (20.0-45.0) Monocytes (%) (Auto) 6.6 % (1.0-10.0) Eosinophils (%) (Auto) 0.8 % (0.0-3.0) Basophils (%) (Auto) 0.8 % (0.0-2.0) Sodium Level 142 mEQ/L (135-145) Potassium Level 3.4 mEQ/L (3.4-4.9) Chloride Level 104 mEQ/L (98-107) Carbon Dioxide Level 25 mEQ/L (20-30) Anion Gap 13 (5-15) Blood Urea Nitrogen 5 mg/dL (7-23) L Creatinine 0.8 mg/dL (0.5-0.9) Estimat Glomerular Filtration Rate mL/min (>60) Glucose Level 94 mg/dL (74-106) Calcium Level 8.8 mg/dL (8.6-10.2) Neurologic Exam Objective PHYSICAL EXAMINATION: GENERAL: She is a well-developed, well-nourished, Maltese lady, sitting up in a chair, in no acute distress. HEAD: Normocephalic and atraumatic. EENT: Examination benign. NECK: No neck rigidity was observed. NEUROLOGIC EXAMINATION: MENTAL STATUS EXAMINATION: She was awake and alert. She was oriented to self only. She had no idea of where she was or what the date was. She was unable to cooperate for further mental status tests. SPEECH: She had no dysarthria LANGUAGE: Normal in Maltese as per daughter.. CRANIAL NERVE EXAMINATION: II: She counted fingers accurately. III, IV & : The external ocular movements were full The pupils were 3 mm in diameter, equal, round, regular, reactive sluggishly to light. V: The facial sensations were normal and the temporales, masseters and pterygoids functioned well. VII: She had normal facial expressions and no facial asymmetry. VIII: She was able to hear well and had no nystagmus. IX: The palate moved symmetrically on phonation. X: She had no hoarseness of voice. XI: The sternocleidomastoids and trapezii did function. XII: The tongue was in midline. MOTOR SYSTEM: The tone was normal in all four extremities. Examination of muscle mass revealed no focal wasting. Examination of power revealed G 5/5 in all muscle groups. SENSORY EXAMINATION: She had intact sensations to pin prick and light touch. REFLEXES: 1+ and bilaterally symmetrical at the biceps, triceps, brachioradialis , and knees and 0 at both ankles. The plantar responses were flexor bilaterally. COORDINATION: She performed well on [id number] testing. STANCE & GAIT: She stood and walked well with contact guard. Impression/Recommendations Diagnostic Impression 1. Ms. Cherelle Olmstead is a 70-year-old, right-handed, M[place]ese lady, who does have a past history of psychiatric illness and dementia, who was hospitalized for an altered mental state related to possible sepsis. 2. She continues to look and feels much better. She is awake and alert. She is also able to stand and walk. .As per her daughter her cognitive function is at her baseline. 3. On neurological examination, at this time, she is awake and alert. She however is disoriented to place and time. She also demonstrates significant cognitive dysfunction. She does not demonstrate any focal or lateralizing findings. 4. Laboratory data thus far have revealed that her hemoglobin is 12.0 and her WBC count is 8.8. Her chemistry panel is relatively benign except for an anion gap of 17. Her glucose is elevated to 147. Her AST and ALT are also elevated. Her CK was also elevated to 496. Her B12, Folate and TSH are normal. 5. The patient's history and neurological examination are most compatible with an acute toxic encephalopathy, possibly related to her acute infectious process , superimposed on her underlying dementia. Her encephalopathy seems to have resolved.. Recommendations 1. Continue present management. 2. Keep fluid and electrolyte status in balance. 3. Increase activity as tolerated. Andi Almanzar M.D., M.S.P.Ester. ANDI ALMANZAR Aug 14, 2016 12:39
--- NOTE | 2016-08-14 12:47 | General Progress Note ---
Assessment/Plan Problem List: (1) Altered level of consciousness ICD Codes: R40.4 - Transient alteration of awareness SNOMED: 5327793 (2) Sepsis ICD Codes: A41.9 - Sepsis, unspecified organism SNOMED: 69694148 (3) UTI (urinary tract infection) ICD Codes: N39.0 - Urinary tract infection, site not specified SNOMED: 71426037 (4) Enteritis ICD Codes: K52.9 - Noninfective gastroenteritis and colitis, unspecified SNOMED: 60699711 Status: progressing Assessment/Plan sepsis s/p tia afebrle reviewed chart and labs ams vitals stable Subjective ROS Limited/Unobtainable: Yes Constitutional: Reports: no symptoms Allergies: Coded Allergies: No Known Allergies (Unverified , 05/08/16) Objective Last 24 Hour Vital Signs Date Time Temp Pulse Resp B/P Pulse Ox O2 Delivery O2 Flow Rate FiO2 08/14/16 11:26 96.6 83 20 108/67 100 Room Air 08/14/16 07:38 96.4 80 20 132/70 98 Room Air 08/14/16 04:00 97.0 85 18 132/82 98 Room Air 08/14/16 00:00 97.2 79 16 106/58 98 Room Air 08/13/16 20:00 98.2 77 16 125/66 96 Room Air 08/13/16 16:00 96.8 69 16 110/58 97 Room Air Intake and Output 08/13/16 08/14/16 19:00 07:00 Intake Total 450 ml 360 ml Output Total 1 ml Balance 450 ml 359 ml Intake Oral 450 ml 360 ml Output Urine Total 1 ml # Voids 1 3 # Bowel Movements 1 1 Laboratory Tests 08/14/16 05:55: White Blood Count 9.6, Red Blood Count 3.63L, Hemoglobin 12.6, Hematocrit 37.0, Mean Corpuscular Volume 102H, Mean Corpuscular Hemoglobin 34.7H, Mean Corpuscular Hemoglobin Concent 34.0, Red Cell Distribution Width 11.8, Platelet Count 182, Mean Platelet Volume 7.3, Neutrophils (%) (Auto) 68.9, Lymphocytes (% ) (Auto) 22.9, Monocytes (%) (Auto) 6.6, Eosinophils (%) (Auto) 0.8, Basophils ( %) (Auto) 0.8, Sodium Level 142, Potassium Level 3.4, Chloride Level 104, Carbon Dioxide Level 25, Anion Gap 13, Blood Urea Nitrogen 5L, Creatinine 0.8, Estimat Glomerular Filtration Rate , Glucose Level 94, Calcium Level 8.8 Height (Feet): 5 Height (Inches): 0.00 Weight (Pounds): 111 EENT: PERRL/EOMI Neck: non-tender Cardiovascular: normal rate Respiratory/Chest: lungs clear Abdomen: soft Anna Bean MD Aug 14, 2016 12:47
[2016-08-14 15:58] VITALS: BP 130/65
--- NOTE | 2016-08-14 16:44 | Infectious Diseases Prog Note ---
Assessment/Plan Problems: (1) Enteritis Assessment & Plan: stool for culture is pending, and stool C diff is negative , continue flagyl empirically and observe (2) Sepsis Assessment & Plan: await blood culture (3) Alzheimer's dementia Assessment & Plan: continue supportive care and meds (4) Hypertension Assessment & Plan: continue meds to keep SBP< 140 (5) Altered level of consciousness Assessment & Plan: doubt due to sepsis, D/C zosyn, neurology is following (6) Melena Assessment & Plan: recommend GI eval, monitor H/H transfuse as needed Subjective ROS Limited/Unobtainable: Yes Allergies: Coded Allergies: No Known Allergies (Unverified , 05/08/16) Subjective she is demented, lying in bed, not in distress , afebrile.had melena today as per patient report Objective Vital Signs Last 24 Hour Vital Signs Date Time Temp Pulse Resp B/P Pulse Ox O2 Delivery O2 Flow Rate FiO2 08/14/16 15:58 98.1 66 18 130/65 93 Room Air 08/14/16 11:26 96.6 83 20 108/67 100 Room Air 08/14/16 07:38 96.4 80 20 132/70 98 Room Air 08/14/16 04:00 97.0 85 18 132/82 98 Room Air 08/14/16 00:00 97.2 79 16 106/58 98 Room Air 08/13/16 20:00 98.2 77 16 125/66 96 Room Air Height (Feet): 5 Height (Inches): 0.00 Weight (Pounds): 111 General Appearance: WD/WN, no acute distress HEENT: normocephalic, atraumatic, anicteric, mucous membranes moist Respiratory/Chest: chest wall non-tender, lungs clear, normal breath sounds, no respiratory distress, no accessory muscle use Cardiovascular: normal peripheral pulses, normal rate, regular rhythm, no gallop/murmur Abdomen: normal bowel sounds, soft, non tender, no organomegaly, non distended , no mass Extremities: no cyanosis, no clubbing Skin: no rash, no lesions Laboratory Tests Test 08/14/16 05:55 White Blood Count 9.6 K/UL (4.8-10.8) Red Blood Count 3.63 M/UL (4.20-5.40) L Hemoglobin 12.6 G/DL (12.0-16.0) Hematocrit 37.0 % (37.0-47.0) Mean Corpuscular Volume 102 FL (80-99) H Mean Corpuscular Hemoglobin 34.7 PG (27.0-31.0) H Mean Corpuscular Hemoglobin Concent 34.0 G/DL (32.0-36.0) Red Cell Distribution Width 11.8 % (11.6-14.8) Platelet Count 182 K/UL (150-450) Mean Platelet Volume 7.3 FL (6.5-10.1) Neutrophils (%) (Auto) 68.9 % (45.0-75.0) Lymphocytes (%) (Auto) 22.9 % (20.0-45.0) Monocytes (%) (Auto) 6.6 % (1.0-10.0) Eosinophils (%) (Auto) 0.8 % (0.0-3.0) Basophils (%) (Auto) 0.8 % (0.0-2.0) Sodium Level 142 mEQ/L (135-145) Potassium Level 3.4 mEQ/L (3.4-4.9) Chloride Level 104 mEQ/L (98-107) Carbon Dioxide Level 25 mEQ/L (20-30) Anion Gap 13 (5-15) Blood Urea Nitrogen 5 mg/dL (7-23) L Creatinine 0.8 mg/dL (0.5-0.9) Estimat Glomerular Filtration Rate mL/min (>60) Glucose Level 94 mg/dL (74-106) Calcium Level 8.8 mg/dL (8.6-10.2) Current Medications Medications (Trade) Dose Ordered Sig/Daniella Route PRN Reason Start Time Stop Time Status Last Admin Dose Admin Acetaminophen (Tylenol) 650 mg Q4H PRN ORAL fever 08/09/16 22:00 09/08/16 21:59 Dextrose (Dextrose 50%) STAT PRN IV Hypoglycemia 08/09/16 22:20 09/08/16 22:19 Docusate Sodium (Colace) 100 mg THREE TIMES A DAY ORAL 08/14/16 18:00 09/13/16 17:59 Donepezil HCl (Aricept) 10 mg DAILY ORAL 08/10/16 09:00 09/09/16 08:59 08/14/16 08:58 Heparin Sodium (Porcine) (Heparin 5000 units/ml) 5,000 units EVERY 12 HOURS SUBQ 08/10/16 09:00 09/09/16 08:59 08/14/16 09:02 Levetiracetam (Keppra) 250 mg DAILY ORAL 08/10/16 09:00 09/09/16 08:59 08/14/16 08:58 Lorazepam (Ativan 2mg/ml 1ml) 1 mg Q2H PRN IV Agitation 08/09/16 22:00 08/16/16 21:59 08/13/16 18:30 Memantine (Namenda) 10 mg BID ORAL 08/10/16 09:00 09/09/16 08:59 08/14/16 08:58 Metronidazole (Flagyl) 500 mg Q8HR ORAL 08/11/16 16:30 08/18/16 16:29 08/14/16 13:52 Morphine Sulfate (Morphine Sulfate) 2 mg Q4H PRN IVP severe Pain (Pain Scale 7-10) 08/09/16 22:00 08/16/16 21:59 08/13/16 09:18 Nitroglycerin (Ntg) 0.4 mg Q5M X 3 DOSES PRN SL Prn Chest Pain 08/09/16 21:45 09/08/16 21:44 Ondansetron HCl (Zofran) 4 mg Q6H PRN IVP Nausea & Vomiting 08/10/16 22:00 09/09/16 21:59 Polyethylene Glycol (Miralax) 17 gm BEDTIME ORAL 08/14/16 21:00 09/13/16 20:59 Polyethylene Glycol (Miralax) 17 gm HSPRN PRN ORAL Constipation 08/09/16 22:00 09/08/16 21:59 Quetiapine Fumarate (SEROquel) 25 mg DAILY ORAL 08/10/16 09:00 09/09/16 08:59 08/14/16 08:58 Temazepam (Restoril) 15 mg HSPRN PRN ORAL Insomnia 08/09/16 22:00 08/16/16 21:59 Kasandra Strong M.D. Aug 14, 2016 16:44
[2016-08-14 17:10] LABS: VITAMIN D 25-OH TOTAL 29 ng/mL (.)
[2016-08-14] MEDS ORDERED: Morphine Sulfate 2mg/ml Inj IM ONE (17:30)
[2016-08-14] MEDS: Docusate 100mg cap ORAL SCH (17:39)
--- NOTE | 2016-08-14 18:45 | Pulmonology Progress Note ---
Assessment/Plan Problems: (1) Sepsis (2) UTI (urinary tract infection) (3) Alzheimer's dementia (4) Hypertension Assessment/Plan improving continue antibiotics check cultures dvt prophylaxis monitor bp dc planning Subjective ROS Limited/Unobtainable: Yes Constitutional: Reports: fatigue Neurologic: Reports: confusion, weakness Allergies: Coded Allergies: No Known Allergies (Unverified , 05/08/16) Objective Last 24 Hour Vital Signs Date Time Temp Pulse Resp B/P Pulse Ox O2 Delivery O2 Flow Rate FiO2 08/14/16 15:58 98.1 66 18 130/65 93 Room Air 08/14/16 11:26 96.6 83 20 108/67 100 Room Air 08/14/16 07:38 96.4 80 20 132/70 98 Room Air 08/14/16 04:00 97.0 85 18 132/82 98 Room Air 08/14/16 00:00 97.2 79 16 106/58 98 Room Air 08/13/16 20:00 98.2 77 16 125/66 96 Room Air Intake and Output 08/13/16 08/14/16 19:00 07:00 Intake Total 450 ml 360 ml Output Total 1 ml Balance 450 ml 359 ml Intake Oral 450 ml 360 ml Output Urine Total 1 ml # Voids 1 3 # Bowel Movements 1 1 General Appearance: no acute distress HEENT: normocephalic, atraumatic, PERRL Respiratory/Chest: chest wall non-tender, decreased breath sounds, accessory muscle use Breasts: no masses Cardiovascular: normal peripheral pulses, normal rate, regular rhythm, no JVD Abdomen: normal bowel sounds, soft, non tender, no organomegaly Genitourinary: normal external genitalia Extremities: no cyanosis Skin: no rash, no lesions Neurologic/Psychiatric: spinal surgeon II-XII grossly normal, disoriented, depressed affect Laboratory Tests 08/14/16 05:55: White Blood Count 9.6, Red Blood Count 3.63L, Hemoglobin 12.6, Hematocrit 37.0, Mean Corpuscular Volume 102H, Mean Corpuscular Hemoglobin 34.7H, Mean Corpuscular Hemoglobin Concent 34.0, Red Cell Distribution Width 11.8, Platelet Count 182, Mean Platelet Volume 7.3, Neutrophils (%) (Auto) 68.9, Lymphocytes (% ) (Auto) 22.9, Monocytes (%) (Auto) 6.6, Eosinophils (%) (Auto) 0.8, Basophils ( %) (Auto) 0.8, Sodium Level 142, Potassium Level 3.4, Chloride Level 104, Carbon Dioxide Level 25, Anion Gap 13, Blood Urea Nitrogen 5L, Creatinine 0.8, Estimat Glomerular Filtration Rate , Glucose Level 94, Calcium Level 8.8 Current Medications Medications (Trade) Dose Ordered Sig/Daniella Route PRN Reason Start Time Stop Time Status Last Admin Dose Admin Acetaminophen (Tylenol) 650 mg Q4H PRN ORAL fever 08/09/16 22:00 09/08/16 21:59 Dextrose (Dextrose 50%) STAT PRN IV Hypoglycemia 08/09/16 22:20 09/08/16 22:19 Docusate Sodium (Colace) 100 mg THREE TIMES A DAY ORAL 08/14/16 18:00 09/13/16 17:59 08/14/16 17:39 Donepezil HCl (Aricept) 10 mg DAILY ORAL 08/10/16 09:00 09/09/16 08:59 08/14/16 08:58 Heparin Sodium (Porcine) (Heparin 5000 units/ml) 5,000 units EVERY 12 HOURS SUBQ 08/10/16 09:00 09/09/16 08:59 08/14/16 09:02 Levetiracetam (Keppra) 250 mg DAILY ORAL 08/10/16 09:00 09/09/16 08:59 08/14/16 08:58 Lorazepam (Ativan 2mg/ml 1ml) 1 mg Q2H PRN IV Agitation 08/09/16 22:00 08/16/16 21:59 08/13/16 18:30 Memantine (Namenda) 10 mg BID ORAL 08/10/16 09:00 09/09/16 08:59 08/14/16 17:39 Metronidazole (Flagyl) 500 mg Q8HR ORAL 08/11/16 16:30 08/18/16 16:29 08/14/16 13:52 Morphine Sulfate (Morphine Sulfate) 2 mg Q4H PRN IVP severe Pain (Pain Scale 7-10) 08/09/16 22:00 08/16/16 21:59 08/13/16 09:18 Nitroglycerin (Ntg) 0.4 mg Q5M X 3 DOSES PRN SL Prn Chest Pain 08/09/16 21:45 09/08/16 21:44 Ondansetron HCl (Zofran) 4 mg Q6H PRN IVP Nausea & Vomiting 08/10/16 22:00 09/09/16 21:59 Polyethylene Glycol (Miralax) 17 gm BEDTIME ORAL 08/14/16 21:00 09/13/16 20:59 Polyethylene Glycol (Miralax) 17 gm HSPRN PRN ORAL Constipation 08/09/16 22:00 09/08/16 21:59 Quetiapine Fumarate (SEROquel) 25 mg DAILY ORAL 08/10/16 09:00 09/09/16 08:59 08/14/16 08:58 Temazepam (Restoril) 15 mg HSPRN PRN ORAL Insomnia 08/09/16 22:00 08/16/16 21:59 MEG SAMUELS Aug 14, 2016 18:45
[2016-08-14 20:33] VITALS: BP 127/50
[2016-08-14] MEDS ORDERED: Miralax 17gm pkt ORAL SCH (21:00)
[2016-08-14] MEDS: Morphine Sulfate 2mg/ml Inj IVP PRN (21:31)
[2016-08-15 00:30] VITALS: BP 98/56
[2016-08-15 04:00] VITALS: BP 94/53
[2016-08-15] MEDS: metroNIDAZOLE 500mg tab ORAL SCH ×2 (05:16→13:05)
[2016-08-15 07:52] VITALS: BP 126/77
--- NOTE | 2016-08-15 08:04 | Pulmonology Progress Note ---
Assessment/Plan Assessment/Plan ASSESSMENT acute toxic encephalopathy ( transient) likely 2 to disease process- resolved enteritis seizure disorder Alzheimer dementia elevated transaminase -resolved PLAN OF CARE MS floor IVF monitor diet tolerance GI follows CT A/P multiple loops of dilated SB, but no evidence of SBO on Flagyl, stool C did negative hepatitis panel negative LFT down to normal dc plan as per PMD antiemetic prn bowel regimen seizure precautions, continue Keppra no seizure activity observed sitter at the bedside continue Aricept and Namenda DVT prophylaxis recommend psych eval - per PMD discretion case discussed and evaluated by supervising physician Subjective Allergies: Coded Allergies: No Known Allergies (Unverified , 05/08/16) Subjective afebrile, no leukocytosis tolerates diet Objective Last 24 Hour Vital Signs Date Time Temp Pulse Resp B/P Pulse Ox O2 Delivery O2 Flow Rate FiO2 08/15/16 07:52 97.3 88 18 126/77 98 Room Air 08/15/16 04:00 97.0 70 16 94/53 94 Room Air 08/15/16 00:30 97.0 77 18 98/56 96 Room Air 08/14/16 22:09 97.0 08/14/16 20:33 97.0 80 19 127/50 94 Room Air 08/14/16 18:10 98.1 08/14/16 15:58 98.1 66 18 130/65 93 Room Air 08/14/16 11:26 96.6 83 20 108/67 100 Room Air Intake and Output 08/14/16 08/15/16 19:00 07:00 Intake Total 500 ml 270 ml Balance 500 ml 270 ml Intake Oral 500 ml 270 ml # Voids 2 # Bowel Movements 1 General Appearance: no acute distress, other - awake, alert, ambulatory, Slovak speaking female HEENT: normocephalic, atraumatic, anicteric, mucous membranes moist, PERRL Respiratory/Chest: lungs clear, normal breath sounds, no respiratory distress, no accessory muscle use Cardiovascular: normal peripheral pulses, normal rate, regular rhythm, no JVD Abdomen: normal bowel sounds, soft, non tender, non distended Genitourinary: normal external genitalia Extremities: no edema, pedal pulses normal Neurologic/Psychiatric: no motor/sensory deficits, alert, responsive Lymphatic: no neck adenopathy Musculoskeletal: normal muscle bulk Current Medications Medications (Trade) Dose Ordered Sig/Daniella Route PRN Reason Start Time Stop Time Status Last Admin Dose Admin Acetaminophen (Tylenol) 650 mg Q4H PRN ORAL fever 08/09/16 22:00 09/08/16 21:59 Dextrose (Dextrose 50%) STAT PRN IV Hypoglycemia 08/09/16 22:20 09/08/16 22:19 Docusate Sodium (Colace) 100 mg THREE TIMES A DAY ORAL 08/14/16 18:00 09/13/16 17:59 08/14/16 17:39 Donepezil HCl (Aricept) 10 mg DAILY ORAL 08/10/16 09:00 09/09/16 08:59 08/14/16 08:58 Heparin Sodium (Porcine) (Heparin 5000 units/ml) 5,000 units EVERY 12 HOURS SUBQ 08/10/16 09:00 09/09/16 08:59 08/14/16 09:02 Levetiracetam (Keppra) 250 mg BID ORAL 08/14/16 21:00 09/13/16 20:59 08/14/16 21:30 Lorazepam (Ativan 2mg/ml 1ml) 1 mg Q2H PRN IV Agitation 08/09/16 22:00 08/16/16 21:59 08/13/16 18:30 Memantine (Namenda) 10 mg BID ORAL 08/10/16 09:00 09/09/16 08:59 08/14/16 17:39 Metronidazole (Flagyl) 500 mg Q8HR ORAL 08/11/16 16:30 08/18/16 16:29 08/15/16 05:16 Morphine Sulfate (Morphine Sulfate) 2 mg Q4H PRN IVP severe Pain (Pain Scale 7-10) 08/09/16 22:00 08/16/16 21:59 08/14/16 21:31 Nitroglycerin (Ntg) 0.4 mg Q5M X 3 DOSES PRN SL Prn Chest Pain 08/09/16 21:45 09/08/16 21:44 Ondansetron HCl (Zofran) 4 mg Q6H PRN IVP Nausea & Vomiting 08/10/16 22:00 09/09/16 21:59 Polyethylene Glycol (Miralax) 17 gm BEDTIME ORAL 08/14/16 21:00 2/4/17 20:59 08/14/16 21:30 Polyethylene Glycol (Miralax) 17 gm HSPRN PRN ORAL Constipation 08/09/16 22:00 09/08/16 21:59 Quetiapine Fumarate (SEROquel) 25 mg DAILY ORAL 08/10/16 09:00 09/09/16 08:59 08/14/16 08:58 Temazepam (Restoril) 15 mg HSPRN PRN ORAL Insomnia 08/09/16 22:00 08/16/16 21:59 Surya ([facility])Becky NP Aug 15, 2016 08:04
[2016-08-15] MEDS: Memantine 10mg tab ORAL SCH (08:43)
[2016-08-15] MEDS: Docusate 100mg cap ORAL SCH ×2 (08:43→13:05)
[2016-08-15] MEDS: Donepezil 10mg tab ORAL SCH (08:43)
[2016-08-15] MEDS: Heparin 5000 units/ml inj SUBQ SCH (08:48)
[2016-08-15] MEDS: Morphine Sulfate 2mg/ml Inj IVP PRN (08:50)
[2016-08-15 10:44] LABS: BASOPHILS % (AUTO) 0.7 % (0.0-2.0); EOSINOPHILS % (AUTO) 0.5 % (0.0-3.0); LYMPHOCYTES % (AUTO) 20.8 % (20.0-45.0); MEAN CORPUSCULAR HEMOGLOBIN 34.5 PG (27.0-31.0); MEAN CORPUSCULAR HGB CONC 34.1 G/DL (32.0-36.0); MEAN CORPUSCULAR VOLUME 101 FL (80-99); MEAN PLATELET VOLUME 7.3 FL (6.5-10.1); PLATELET COUNT 192 K/UL (150-450); RED BLOOD COUNT 3.72 M/UL (4.20-5.40); RED CELL DISTRIBUTION WIDTH 12.3 % (11.6-14.8); WHITE BLOOD COUNT 7.2 K/UL (4.8-10.8)
[2016-08-15 10:51] LABS: ANION GAP 14 (5-15); CARBON DIOXIDE 24 mEQ/L (20-30); CHLORIDE 105 mEQ/L (98-107); CREATININE 0.9 mg/dL (0.5-0.9); HEMOLYSIS 4; POTASSIUM 3.7 mEQ/L (3.4-4.9); SODIUM 143 mEQ/L (135-145)
--- NOTE | 2016-08-15 11:11 | GI Progress Note ---
Assessment/Plan Problems: (1) Enteritis ICD Codes: K52.9 - Noninfective gastroenteritis and colitis, unspecified SNOMED: 24910477 (2) Alzheimer's dementia ICD Codes: G30.9 - Alzheimer's disease, unspecified SNOMED: 51009179 (3) Altered level of consciousness ICD Codes: R40.4 - Transient alteration of awareness SNOMED: 2649724 (4) Gastric wall thickening ICD Codes: K31.89 - Other diseases of stomach and duodenum SNOMED: 22745050 (5) Dilated bowel SNOMED: 25302146 Status: stable Status Narrative Discussed with Dr. Newsome. Assessment/Plan - N/V - resolved - abnormal LFT - improved >> WNL today - HTN - OBS - Anxiety - reports of bloody stool per RN >> stable H&H >> most likely hemorrhoidal, colace + miralax. Recommendations - dc planning - adv to regular diet - follow LFT - Await formal CT reading - hep panel negative - cdiff negative - monitor H&H, stable Subjective Subjective limited Objective Last 24 Hour Vital Signs Date Time Temp Pulse Resp B/P Pulse Ox O2 Delivery O2 Flow Rate FiO2 08/15/16 09:20 97.3 08/15/16 07:52 97.3 88 18 126/77 98 Room Air 08/15/16 04:00 97.0 70 16 94/53 94 Room Air 08/15/16 00:30 97.0 77 18 98/56 96 Room Air 08/14/16 20:33 97.0 80 19 127/50 94 Room Air 08/14/16 18:10 98.1 08/14/16 15:58 98.1 66 18 130/65 93 Room Air 08/14/16 11:26 96.6 83 20 108/67 100 Room Air Intake and Output 08/14/16 08/15/16 19:00 07:00 Intake Total 500 ml 270 ml Balance 500 ml 270 ml Intake Oral 500 ml 270 ml # Voids 2 # Bowel Movements 1 Laboratory Tests Test 08/15/16 09:50 White Blood Count 7.2 K/UL (4.8-10.8) Red Blood Count 3.72 M/UL (4.20-5.40) L Hemoglobin 12.8 G/DL (12.0-16.0) Hematocrit 37.7 % (37.0-47.0) Mean Corpuscular Volume 101 FL (80-99) H Mean Corpuscular Hemoglobin 34.5 PG (27.0-31.0) H Mean Corpuscular Hemoglobin Concent 34.1 G/DL (32.0-36.0) Red Cell Distribution Width 12.3 % (11.6-14.8) Platelet Count 192 K/UL (150-450) Mean Platelet Volume 7.3 FL (6.5-10.1) Neutrophils (%) (Auto) 70.0 % (45.0-75.0) Lymphocytes (%) (Auto) 20.8 % (20.0-45.0) Monocytes (%) (Auto) 8.0 % (1.0-10.0) Eosinophils (%) (Auto) 0.5 % (0.0-3.0) Basophils (%) (Auto) 0.7 % (0.0-2.0) Sodium Level 143 mEQ/L (135-145) Potassium Level 3.7 mEQ/L (3.4-4.9) Chloride Level 105 mEQ/L (98-107) Carbon Dioxide Level 24 mEQ/L (20-30) Anion Gap 14 (5-15) Blood Urea Nitrogen 9 mg/dL (7-23) Creatinine 0.9 mg/dL (0.5-0.9) Estimat Glomerular Filtration Rate mL/min (>60) Glucose Level 115 mg/dL (74-106) H Calcium Level 9.0 mg/dL (8.6-10.2) Height (Feet): 5 Height (Inches): 0.00 Weight (Pounds): 111 General Appearance: no apparent distress, alert Cardiovascular: normal rate Respiratory/Chest: normal breath sounds, no respiratory distress Abdominal Exam: normal bowel sounds, non tender, soft Marilee Salcedo N.PBryant Aug 15, 2016 11:11
[2016-08-15 12:00] VITALS: BP 138/79
--- NOTE | 2016-08-15 13:17 | General Progress Note ---
Assessment/Plan Status: stable Assessment/Plan HTN controlled- Low K replaced PH - Abdominal pain with vomiting secondary to acute pancreatitis. - Alzheimer's dementia. - Possible enteritis. Plan: Watch BP on current treatment- Watch electrolytes in view of vomiting continue per GI- check UA: Negative Subjective ROS Limited/Unobtainable: No Constitutional: Reports: malaise Allergies: Coded Allergies: No Known Allergies (Unverified , 05/08/16) Objective Last 24 Hour Vital Signs Date Time Temp Pulse Resp B/P Pulse Ox O2 Delivery O2 Flow Rate FiO2 08/15/16 12:00 96.7 94 20 138/79 99 Room Air 08/15/16 09:20 97.3 08/15/16 07:52 97.3 88 18 126/77 98 Room Air 08/15/16 04:00 97.0 70 16 94/53 94 Room Air 08/15/16 00:30 97.0 77 18 98/56 96 Room Air 08/14/16 20:33 97.0 80 19 127/50 94 Room Air 08/14/16 18:10 98.1 08/14/16 15:58 98.1 66 18 130/65 93 Room Air Intake and Output 08/14/16 08/15/16 19:00 07:00 Intake Total 500 ml 270 ml Balance 500 ml 270 ml Intake Oral 500 ml 270 ml # Voids 2 # Bowel Movements 1 Laboratory Tests 08/15/16 09:50: White Blood Count 7.2, Red Blood Count 3.72L, Hemoglobin 12.8, Hematocrit 37.7, Mean Corpuscular Volume 101H, Mean Corpuscular Hemoglobin 34.5H, Mean Corpuscular Hemoglobin Concent 34.1, Red Cell Distribution Width 12.3, Platelet Count 192, Mean Platelet Volume 7.3, Neutrophils (%) (Auto) 70.0, Lymphocytes (% ) (Auto) 20.8, Monocytes (%) (Auto) 8.0, Eosinophils (%) (Auto) 0.5, Basophils ( %) (Auto) 0.7, Sodium Level 143, Potassium Level 3.7, Chloride Level 105, Carbon Dioxide Level 24, Anion Gap 14, Blood Urea Nitrogen 9, Creatinine 0.9, Estimat Glomerular Filtration Rate , Glucose Level 115H, Calcium Level 9.0 Height (Feet): 5 Height (Inches): 0.00 Weight (Pounds): 111 General Appearance: no apparent distress Objective PE not changed ANDRE MAXWELL Aug 15, 2016 13:17
--- NOTE | 2016-08-15 14:52 | Neurology Progress Note ---
Interim History Interim History Interim History Ms. Omlstead feels well. She is alert and bright. She is eating well. She continues to be cognitively impoverished. She is generally strong.. She is able to express her needs in Macedonian. Review of Systems Neuro Review of Systems Benign. Objective Physical Exam Last Vital Signs Date Time Temp Pulse Resp B/P Pulse Ox O2 Delivery O2 Flow Rate FiO2 08/15/16 12:00 96.7 94 20 138/79 99 Room Air Laboratory Tests Test 08/15/16 09:50 White Blood Count 7.2 K/UL (4.8-10.8) Red Blood Count 3.72 M/UL (4.20-5.40) L Hemoglobin 12.8 G/DL (12.0-16.0) Hematocrit 37.7 % (37.0-47.0) Mean Corpuscular Volume 101 FL (80-99) H Mean Corpuscular Hemoglobin 34.5 PG (27.0-31.0) H Mean Corpuscular Hemoglobin Concent 34.1 G/DL (32.0-36.0) Red Cell Distribution Width 12.3 % (11.6-14.8) Platelet Count 192 K/UL (150-450) Mean Platelet Volume 7.3 FL (6.5-10.1) Neutrophils (%) (Auto) 70.0 % (45.0-75.0) Lymphocytes (%) (Auto) 20.8 % (20.0-45.0) Monocytes (%) (Auto) 8.0 % (1.0-10.0) Eosinophils (%) (Auto) 0.5 % (0.0-3.0) Basophils (%) (Auto) 0.7 % (0.0-2.0) Sodium Level 143 mEQ/L (135-145) Potassium Level 3.7 mEQ/L (3.4-4.9) Chloride Level 105 mEQ/L (98-107) Carbon Dioxide Level 24 mEQ/L (20-30) Anion Gap 14 (5-15) Blood Urea Nitrogen 9 mg/dL (7-23) Creatinine 0.9 mg/dL (0.5-0.9) Estimat Glomerular Filtration Rate mL/min (>60) Glucose Level 115 mg/dL (74-106) H Calcium Level 9.0 mg/dL (8.6-10.2) Neurologic Exam Objective PHYSICAL EXAMINATION: GENERAL: She is a well-developed, well-nourished, [place] lady, lying in bed, in no acute distress. HEAD: Normocephalic and atraumatic. EENT: Examination benign. NECK: No neck rigidity was observed. NEUROLOGIC EXAMINATION: MENTAL STATUS EXAMINATION: She was awake and alert. She was oriented to self only. She had no idea of where she was or what the date was. She was unable to cooperate for further mental status tests. SPEECH: She had no dysarthria LANGUAGE: Normal in Macedonian as per daughter.. CRANIAL NERVE EXAMINATION: II: She counted fingers accurately. III, IV & : The external ocular movements were full The pupils were 3 mm in diameter, equal, round, regular, reactive sluggishly to light. V: The facial sensations were normal and the temporales, masseters and pterygoids functioned well. VII: She had normal facial expressions and no facial asymmetry. VIII: She was able to hear well and had no nystagmus. IX: The palate moved symmetrically on phonation. X: She had no hoarseness of voice. XI: The sternocleidomastoids and trapezii did function. XII: The tongue was in midline. MOTOR SYSTEM: The tone was normal in all four extremities. Examination of muscle mass revealed no focal wasting. Examination of power revealed G 5/5 in all muscle groups. SENSORY EXAMINATION: She had intact sensations to pin prick and light touch. REFLEXES: 1+ and bilaterally symmetrical at the biceps, triceps, brachioradialis , and knees and 0 at both ankles. The plantar responses were flexor bilaterally. COORDINATION: She performed well on [id number] testing. STANCE & GAIT: She stood and walked well independently. Impression/Recommendations Diagnostic Impression 1. Ms. Cherelle Olmstead is a 70-year-old, right-handed, [place] lady, who does have a past history of psychiatric illness and dementia, who was hospitalized for an altered mental state related to possible sepsis. 2. She continues to look and feel much better. She is awake and alert. She is also able to stand and walk independently. As per her daughter her cognitive function is at her baseline. 3. On neurological examination, at this time, she is awake and alert. She however is disoriented to place and time. She also demonstrates significant cognitive dysfunction. She does not demonstrate any focal or lateralizing findings. 4. Laboratory data thus far have revealed that her hemoglobin is 12.0 and her WBC count is 8.8. Her chemistry panel is relatively benign except for an anion gap of 17. Her glucose is elevated to 147. Her AST and ALT are also elevated. Her CK was also elevated to 496. Her B12, Folate and TSH were normal. 5. The patient's history and neurological examination are most compatible with an acute toxic encephalopathy, possibly related to her acute infectious process , superimposed on her underlying dementia. Her encephalopathy seems to have resolved. Recommendations 1. Continue present management. 2. Keep fluid and electrolyte status in balance. 3. Increase activity as tolerated. Andi Almanzar M.D., M.S.P.Ester. ANDI ALMANZAR Aug 15, 2016 14:52
--- NOTE | 2016-08-15 15:40 | General Progress Note ---
Assessment/Plan Problem List: (1) Altered level of consciousness ICD Codes: R40.4 - Transient alteration of awareness SNOMED: 8190985 (2) Sepsis ICD Codes: A41.9 - Sepsis, unspecified organism SNOMED: 18188442 (3) UTI (urinary tract infection) ICD Codes: N39.0 - Urinary tract infection, site not specified SNOMED: 75881920 (4) Enteritis ICD Codes: K52.9 - Noninfective gastroenteritis and colitis, unspecified SNOMED: 97533257 Status: progressing Assessment/Plan tia afebrile vitals stable clinically improving reviewed chart Subjective ROS Limited/Unobtainable: Yes Allergies: Coded Allergies: No Known Allergies (Unverified , 05/08/16) Objective Last 24 Hour Vital Signs Date Time Temp Pulse Resp B/P Pulse Ox O2 Delivery O2 Flow Rate FiO2 08/15/16 12:00 96.7 94 20 138/79 99 Room Air 08/15/16 09:20 97.3 08/15/16 07:52 97.3 88 18 126/77 98 Room Air 08/15/16 04:00 97.0 70 16 94/53 94 Room Air 08/15/16 00:30 97.0 77 18 98/56 96 Room Air 08/14/16 20:33 97.0 80 19 127/50 94 Room Air 08/14/16 18:10 98.1 08/14/16 15:58 98.1 66 18 130/65 93 Room Air Intake and Output 08/14/16 08/15/16 19:00 07:00 Intake Total 500 ml 270 ml Balance 500 ml 270 ml Intake Oral 500 ml 270 ml # Voids 2 # Bowel Movements 1 Laboratory Tests 08/15/16 09:50: White Blood Count 7.2, Red Blood Count 3.72L, Hemoglobin 12.8, Hematocrit 37.7, Mean Corpuscular Volume 101H, Mean Corpuscular Hemoglobin 34.5H, Mean Corpuscular Hemoglobin Concent 34.1, Red Cell Distribution Width 12.3, Platelet Count 192, Mean Platelet Volume 7.3, Neutrophils (%) (Auto) 70.0, Lymphocytes (% ) (Auto) 20.8, Monocytes (%) (Auto) 8.0, Eosinophils (%) (Auto) 0.5, Basophils ( %) (Auto) 0.7, Sodium Level 143, Potassium Level 3.7, Chloride Level 105, Carbon Dioxide Level 24, Anion Gap 14, Blood Urea Nitrogen 9, Creatinine 0.9, Estimat Glomerular Filtration Rate , Glucose Level 115H, Calcium Level 9.0 Height (Feet): 5 Height (Inches): 0.00 Weight (Pounds): 111 EENT: PERRL/EOMI Neck: supple Cardiovascular: normal rate Respiratory/Chest: lungs clear Abdomen: soft Anna Bean MD Aug 15, 2016 15:40
[2016-08-15 16:00] VITALS: BP 111/63
--- NOTE | 2016-08-15 16:43 | Infectious Diseases Prog Note ---
Assessment/Plan Problems: (1) Enteritis Assessment & Plan: stool for culture is pending, and stool C diff is negative , continue flagyl empirically and observe (2) Sepsis Assessment & Plan: await blood culture (3) Alzheimer's dementia Assessment & Plan: continue supportive care and meds (4) Hypertension Assessment & Plan: continue meds to keep SBP< 140 (5) Altered level of consciousness Assessment & Plan: doubt due to sepsis, D/C zosyn, neurology is following (6) Melena Assessment & Plan: monitor H/H , and transfuse as needed , GI is following Subjective ROS Limited/Unobtainable: Yes Allergies: Coded Allergies: No Known Allergies (Unverified , 05/08/16) Subjective she is demented, lying in bed, not in distress , afebrile.had melena today as per patient report Objective Vital Signs Last 24 Hour Vital Signs Date Time Temp Pulse Resp B/P Pulse Ox O2 Delivery O2 Flow Rate FiO2 08/15/16 12:00 96.7 94 20 138/79 99 Room Air 08/15/16 09:20 97.3 08/15/16 07:52 97.3 88 18 126/77 98 Room Air 08/15/16 04:00 97.0 70 16 94/53 94 Room Air 08/15/16 00:30 97.0 77 18 98/56 96 Room Air 08/14/16 20:33 97.0 80 19 127/50 94 Room Air 08/14/16 18:10 98.1 Height (Feet): 5 Height (Inches): 0.00 Weight (Pounds): 111 General Appearance: WD/WN, no acute distress HEENT: normocephalic, atraumatic, anicteric, mucous membranes moist Respiratory/Chest: chest wall non-tender, lungs clear, normal breath sounds, no respiratory distress, no accessory muscle use Cardiovascular: normal peripheral pulses, normal rate, regular rhythm, no gallop/murmur Abdomen: normal bowel sounds, soft, non tender, no organomegaly, non distended , no mass Extremities: no cyanosis, no clubbing Skin: no rash, no lesions Laboratory Tests Test 08/15/16 09:50 White Blood Count 7.2 K/UL (4.8-10.8) Red Blood Count 3.72 M/UL (4.20-5.40) L Hemoglobin 12.8 G/DL (12.0-16.0) Hematocrit 37.7 % (37.0-47.0) Mean Corpuscular Volume 101 FL (80-99) H Mean Corpuscular Hemoglobin 34.5 PG (27.0-31.0) H Mean Corpuscular Hemoglobin Concent 34.1 G/DL (32.0-36.0) Red Cell Distribution Width 12.3 % (11.6-14.8) Platelet Count 192 K/UL (150-450) Mean Platelet Volume 7.3 FL (6.5-10.1) Neutrophils (%) (Auto) 70.0 % (45.0-75.0) Lymphocytes (%) (Auto) 20.8 % (20.0-45.0) Monocytes (%) (Auto) 8.0 % (1.0-10.0) Eosinophils (%) (Auto) 0.5 % (0.0-3.0) Basophils (%) (Auto) 0.7 % (0.0-2.0) Sodium Level 143 mEQ/L (135-145) Potassium Level 3.7 mEQ/L (3.4-4.9) Chloride Level 105 mEQ/L (98-107) Carbon Dioxide Level 24 mEQ/L (20-30) Anion Gap 14 (5-15) Blood Urea Nitrogen 9 mg/dL (7-23) Creatinine 0.9 mg/dL (0.5-0.9) Estimat Glomerular Filtration Rate mL/min (>60) Glucose Level 115 mg/dL (74-106) H Calcium Level 9.0 mg/dL (8.6-10.2) Current Medications Medications (Trade) Dose Ordered Sig/Daniella Route PRN Reason Start Time Stop Time Status Last Admin Dose Admin Acetaminophen (Tylenol) 650 mg Q4H PRN ORAL fever 08/09/16 22:00 09/08/16 21:59 Dextrose (Dextrose 50%) STAT PRN IV Hypoglycemia 08/09/16 22:20 09/08/16 22:19 Docusate Sodium (Colace) 100 mg THREE TIMES A DAY ORAL 08/14/16 18:00 09/13/16 17:59 08/15/16 13:05 Donepezil HCl (Aricept) 10 mg DAILY ORAL 08/10/16 09:00 09/09/16 08:59 08/15/16 08:43 Heparin Sodium (Porcine) (Heparin 5000 units/ml) 5,000 units EVERY 12 HOURS SUBQ 08/10/16 09:00 09/09/16 08:59 08/15/16 08:48 Levetiracetam (Keppra) 250 mg BID ORAL 08/14/16 21:00 09/13/16 20:59 08/15/16 08:43 Lorazepam (Ativan 2mg/ml 1ml) 1 mg Q2H PRN IV Agitation 08/09/16 22:00 08/16/16 21:59 08/13/16 18:30 Memantine (Namenda) 10 mg BID ORAL 08/10/16 09:00 09/09/16 08:59 08/15/16 08:43 Metronidazole (Flagyl) 500 mg Q8HR ORAL 08/11/16 16:30 08/18/16 16:29 08/15/16 13:05 Morphine Sulfate (Morphine Sulfate) 2 mg Q4H PRN IVP severe Pain (Pain Scale 7-10) 08/09/16 22:00 08/16/16 21:59 08/15/16 08:50 Nitroglycerin (Ntg) 0.4 mg Q5M X 3 DOSES PRN SL Prn Chest Pain 08/09/16 21:45 09/08/16 21:44 Ondansetron HCl (Zofran) 4 mg Q6H PRN IVP Nausea & Vomiting 08/10/16 22:00 09/09/16 21:59 Polyethylene Glycol (Miralax) 17 gm BEDTIME ORAL 08/14/16 21:00 09/13/16 20:59 08/14/16 21:30 Polyethylene Glycol (Miralax) 17 gm HSPRN PRN ORAL Constipation 08/09/16 22:00 09/08/16 21:59 Quetiapine Fumarate (SEROquel) 25 mg DAILY ORAL 08/10/16 09:00 09/09/16 08:59 08/15/16 08:43 Temazepam (Restoril) 15 mg HSPRN PRN ORAL Insomnia 08/09/16 22:00 08/16/16 21:59 Kasandra Strong M.D. Aug 15, 2016 16:43
--- NOTE | 2016-08-17 10:30 | Diagnostic Imaging Report ---
Clinical Indication: Abdominal pain Technique: No oral contrast utilized, per emergency room physician request IV administration nonionic contrast. Venous phase spiral acquisition obtained through the abdomen and pelvis. Multiplanar reconstructions were generated. Total dose length product 838 mGycm. CTDIvol(s) 15 mGy Comparison: 05/08/2016 Findings: The appendix is normal. There is slight wall thickening of the ascending colon, possibly in part an artifact of under distention. Several small bowel loops, particularly in the pelvis, also have slightly thickened enhancing bautista, and there is equivocal slight increased attenuation of the perienteric fat. No small bowel distention. The is gastric wall, particularly the antrum, also appears mildly thickened. The duodenum and distal esophagus appear unremarkable. No free or loculated intraperitoneal air or fluid is demonstrated. There are very few colonic diverticula The liver, gallbladder, bile ducts, this, spleen, adrenals are unremarkable. The kidneys demonstrate bilateral subcentimeter low-attenuation lesions are too small characterize, most likely represent benign simple cortical cysts. No retroperitoneal or mesenteric mass or adenopathy. Uterus and right ovary appear unremarkable. There is a is cyst in the left ovary which measures 2 cm in diameter, with also evident on the prior exam and appears unchanged. No other pelvic mass or adenopathy. The bladder is unremarkable. The included lung bases demonstrate posterior dependent atelectatic changes. The bones demonstrate degenerative spondylosis changes. Impression: Multiple small bowel loops demonstrating mural thickening and slight increased attenuation of the perienteric fat, suggestive of enteritis, nonspecific as regards etiology Apparent wall thickening of the gastric antrum and portions of the colon. Possibly an artifact of under distention, but gastritis and colitis are a possibility. Correlate with clinical findings No evidence of small bowel obstruction or appendicitis. Bilateral basilar pulmonary parenchymal dependent atelectasis Stable 2 cm left ovarian cyst, since 05/08/2016 Bilateral subcentimeter low-attenuation renal lesions, too small to characterize, most likely benign simple cortical cysts. No further followup necessary Incidental findings as noted, including mild degenerative spondylosis, scattered colonic diverticula This agrees with the preliminary interpretation provided overnight by Dr. Jaramillo The CT scanner at [facility] is accredited by the [employer] and the scans are performed using protocols designed to limit radiation exposure to as low as reasonably achievable to attain images of sufficient resolution adequate for diagnostic evaluation.
--- NOTE | 2016-08-18 07:46 | Discharge Summary ---
Discharge Summary Hospital Course Date of Admission Aug 08, 2016 at 17:27 Date of Discharge Aug 15, 2016 at 18:10 Admitting Diagnosis AMS HPI Cherellemarlon Penaloza Cha is a 71 year old female who was admitted on Aug 08, 2016 at 17:27 for Altered Mental Status Hospital Course dc summary dictated # [id number] dc diagnoses acute toxic encephalopathy (transient), r/t acute infectious process , superimposed on chronic dementia enteritis HTN Alzheimer dementia seizure disorder elevated transaminase Discharge Discharge Disposition Patient was discharged to Home (01) Discharge Diagnoses: Surya (Jianasya)Becky NP Aug 18, 2016 07:46
--- NOTE | 2016-08-19 05:07 | Discharge Summary 2 SIG ---
DATE OF ADMISSION: 08/08/2016 DATE OF DISCHARGE: 08/15/2016 CONDITION: Stable. ADMITTING DIAGNOSES: 1. Altered level of consciousness. 2. Enteritis. 3. Dilated bowels. DISCHARGE DIAGNOSES: 1. Sepsis. 2. Enteritis. 3. Acute toxic encephalopathy (related to acute infectious process, superimposed on underlying dementia) - resolved 4. Hypertension. 5. Alzheimer's dementia. 6. Elevated transaminase. 7. Seizure disorder. HOSPITAL COURSE/TREATMENT: 71 years old female was admitted for enteritis and altered level of consciousness with nausea, vomiting, and being more altered than usually,. CT of the abdomen and pelvis revealed multiple small bowel loops demonstrating mural thickening and increased attenuation suggestive of enteritis. Consultants on the case included GI, Dr. Maldonado, ID -Dr. Strong, neurologist- Dr. Almanzar, pulmonary - Dr. Lagunas, and manager dairy, Dr. Wagner. Initially started in IV fluids Diet was slowly advanced. GI followed. The patient was on empiric antibiotics. Stool for C. difficile was negative. Hepatitis panel was negative. LFTs were monitored , currently down to normal. Antiemetic provided as needed. Bowel regimen instituted. Seizure precaution maintained. Keppra continued. No seizure activity observed while in the hospital. Sitter at the bedside for safety. Aricept and Namenda continued. Mental status back to baseline as clinically improved. DVT prophylaxis provided. 1 episode of melena per nursing staff , per GI - most likely secondary to hemorrhoids. The patient was on bowel regimen and hemoglobin and hematocrit stable noted. Recommended outpatient GI procedures, DISCHARGE MEDICATIONS: See medication reconciliation list. DISCHARGE INSTRUCTIONS: The patient was discharged home. Follow up with primary medical doctor. Anna Bean M.D. I have been assigned to dictate discharge summary on this account and I was not involved in the patient's management. Becky London (Vanchtein) N.P. DR: Rae JOB#: [id number] CC: [id number]
== END 2016-08-15 18:10 | disposition home or self-care (01) | DRG 871 ==
LOC: ENRESERVDT → ENRESERVTM → EDBD 16:57 → EMR 17:26 → 2E 17:27 → EDBEDREQ 21:43 → 3E 08-09 21:32
DX: A41.9 Sepsis, unspecified organism (principal); K85.90 Acute pancreatitis without necrosis or infection, unspecified; G92 Toxic encephalopathy; N39.0 Urinary tract infection, site not specified; G30.9 Alzheimer's disease, unspecified; F02.80 Dementia in other diseases classified elsewhere, unspecified severity, without behavioral disturbance, psychotic disturbance, mood disturbance, and anxiety; I10 Essential (primary) hypertension; G40.909 Epilepsy, unspecified, not intractable, without status epilepticus; F29 Unspecified psychosis not due to a substance or known physiological condition; K52.9 Noninfective gastroenteritis and colitis, unspecified; K21.9 Gastro-esophageal reflux disease without esophagitis; E11.9 Type 2 diabetes mellitus without complications; F41.9 Anxiety disorder, unspecified; K31.89 Other diseases of stomach and duodenum
CPT/HCPCS: 36415; 71010; 74177; 80048; 80053; 80299; 81001; 82150; 82306; 82550; 82553; 82607; 82746; 82977; 83036; 83690; 83735; 84100; 84443; 84484; 84550; 85025; 85651; 85730; 86592; 86705; 86709; 86803; 87081; 87340; 87493; 93005; J2405; J2765; J8499